=== PATIENT | female | born 1955 | race Caucasian/White ===

== ENCOUNTER 2018-01-25 11:21 | Emergency (ER) | payer BC, SELFPAY ==
[2018-01-25 11:22] VITALS: BP 147/83; PULSE 74; RESP 17; TEMP 36.3; O2SAT 95; BMI 40.6
--- NOTE | 2018-01-25 11:44 | RAD_ITS ---
STUDY: X-RAY - SOFT TISSUE NECK REASON FOR EXAM: Female, 62 years old. Sore throat. TECHNIQUE: 3 view(s) of the neck were obtained. COMPARISON: None. FINDINGS: Normal visualized nasopharynx, oropharynx, hypopharynx. Normal epiglottis. Normal visualized subglottic tracheal air column. Normal prevertebral soft tissue structures. There are degenerative changes of the cervical spine with cervical spondylosis. The soft tissue structures are unremarkable. 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 Electronically Signed: Gavin Avila MD at 12:48 EDT Tel [phone], Service support ,
--- NOTE | 2018-01-25 11:51 | ED.DCSUM_ITS ---
- ER Visit Summary Date of Service: 01/25/18 Chief Complaint: Sore throat History of Present Illness: The patient is a 62 F yesterday she started getting a sore throat with laryngitis. Denies any fever. Mild cough. No vomiting or diarrhea. Able to swallow but with some discomfort. Patient had a similar event this 1 other time states she had a significant strep infection at that time. She denies other symptoms. Physical Examination: Appearing female. Vital signs are stable. She is afebrile. She does not look septic or toxic. Pulse is 95% room air no hypoxia no distress. HEENT exam posterior pharynx is mildly erythematous tonsils are slightly enlarged. They are not touching the airways patent. There is no exudate. There is no stridor. She is able to swallow. There is no drooling. She was able to drink water in front of me with mild discomfort. Neck she is tender tonsillar beds but not tracheal tenderness no lymphadenopathy. No meningismus. Lungs clear to auscultation bilaterally. Heart regular rhythm no murmur. Abdomen soft nontender. She is moving all 4 extremities. They are neurovascularly intact. Neurologically she is awake and alert without focal motor deficits. Test Results: Soft tissue plain film of the neck shows no acute abnormality read both myself and the radiologist. There are degenerative changes at C5-C6. Rapid strep test negative. Emergency Department Course and Treatment: Clinically this appears to be a viral syndrome. Patient will undergo a rapid strep test and an x-ray. Treatment Plan: The patient is doing well at 1315. She will be treated symptomatically with warm salt water gargling. And follow-up as needed. Disposition: Discharge Impression: Acute viral pharyngitis This note was generated with [employer] dictation software. It may contain incorrect words, spelling, and punctuation that were not noted in review of the chart prior to signing ED Disposition - Plan for ED Patient: Chief Complaint: Sore Throat Referrals: Damon Jane [Primary Care Provider] -
--- NOTE | 2018-01-25 13:30 | ED.DEP ---
ED Disposition - Plan for ED Patient: Disposition: Home or Assisted Living Chief Complaint: Sore Throat Instructions: ED Pharyngitis Viral Referrals: Damon Jane [Primary Care Provider] - 1 Week if not improving Additional Instructions: Warm salt water gargling. Tea and honey. Rest your voice. This appears to be a viral syndrome and should progressively get better. No antibiotics are needed at this time.
[2018-01-25 13:49] VITALS: PULSE 54; RESP 17; O2SAT 98
== END 2018-01-25 13:50 | disposition home or self-care (01) ==
PROVIDERS: Emergency Provider Emergency Medicine; Family Provider Family Medicine; PCP Family Medicine
DX: J02.9 Acute pharyngitis, unspecified (principal); Z87.891 Personal history of nicotine dependence; D64.9 Anemia, unspecified; Z79.899 Other long term (current) drug therapy
CPT/HCPCS: 70360; 87880; 99282

== ENCOUNTER → 2018-09-06 16:48 | Outpatient (CLI) | payer OTHER, SELFPAY ==
[2018-09-06 16:24] VITALS: BMI 39.3
--- NOTE | 2018-09-06 16:55 | RAD_ITS ---
STUDY: X-RAY - RIGHT FOOT CLINICAL: Female, 63 years old. Trauma to great toe TECHNIQUE: 3 view(s) of the foot. COMPARISON: None. FINDINGS: Normal talus, and tarsal bones. Prominent plantar calcaneal spur Normal visualized subtalar, talonavicular, calcaneocuboid, tarsal and tarsometatarsal articulations. Normal metatarsi. Normal metatarsophalangeal joint of the great toe. Normal tibial and fibular sesamoid bones. Normal interphalangeal joint of the great toe. Acute comminuted nondisplaced fracture of the distal phalanx of the great toe. Normal second through fifth metatarsophalangeal joints. Normal interphalangeal joints and phalanges of the lesser toes. The soft tissue structures are unremarkable. RAD/Foot 2 Views IMPRESSION: Acute comminuted nondisplaced fracture of the distal phalanx of the great toe Electronically Signed: Arben Coulter MD at 17:43 EST , Service support ,
== END ==
PROVIDERS: Family Provider Family Medicine; PCP Family Medicine; Referring Provider Physician Assistant Medical; Visit Provider Physician Assistant Medical
DX: S92.424A Nondisplaced fracture of distal phalanx of right great toe, initial encounter for closed fracture (principal); S90.211A Contusion of right great toe with damage to nail, initial encounter; S90.31XA Contusion of right foot, initial encounter; S90.121A Contusion of right lesser toe(s) without damage to nail, initial encounter; W22.8XXA Striking against or struck by other objects, initial encounter
CPT/HCPCS: 73620

== ENCOUNTER → 2018-09-25 15:43 | Outpatient (CLI) | payer OTHER, BC, SELFPAY ==
[2018-09-25 15:31] VITALS: BMI 39.3
--- NOTE | 2018-09-25 15:47 | RAD_ITS ---
STUDY: X-RAY - RIGHT FOOT CLINICAL: Female, 63 years old. Pain and swelling TECHNIQUE: 4 view(s) of the foot. COMPARISON: 09/06/2018 FINDINGS: Normal talus, and tarsal bones. Calcaneal spurs Normal visualized subtalar, talonavicular, calcaneocuboid, tarsal and tarsometatarsal articulations. Normal metatarsi. Normal metatarsophalangeal joint of the great toe. Normal tibial and fibular sesamoid bones. Normal interphalangeal joint of the great toe. No interval change in appearance of a previously described comminuted fracture in the distal phalanx of the great toe. Normal second through fifth metatarsophalangeal joints. Normal interphalangeal joints and phalanges of the lesser toes. The soft tissue structures are unremarkable. RAD/Foot min 3 Views IMPRESSION: Degenerative arthrosis with calcaneal spurs No interval change in the appearance of a previously described comminuted fracture in the distal phalanx of the great toe Electronically Signed: Jacek Garza MD at 15:59 EST , Service support ,
--- OUTSIDE RECORDS SUMMARY | 2018-11-12 00:47 | XMS RPT_ITS ---
:1955 Author Organization OHIP Support Name Relationship Address Phone [employer] Unavailable [address] + [address] [place] [address] DANITA DOOLEYRICIA Unavailable [id number] + [place] [address] [employer] Unavailable [address] + [address] [place] [address] DANITA DOOLEYRICIA Unavailable [address] + [place] [address] [employer] Unavailable [address] + [address] [place] [address] DANITA DOOLEYRICIA Unavailable [address] + [place] [address] [employer] Unavailable [address] + [address] [place] [address] SOUMYA KELSEY Unavailable [address] + [place] [address] [employer] Unavailable [address] + [address] [place] [address] SOUMYA KELSEY Unavailable [address] + [place] [address] [employer] Unavailable [address] + [address] [place] [address] DANITA DOOLEYRICIA Unavailable [address] + [place] [address] [employer] Unavailable [address] + [address] [place] [address] DANITA DOOLEYRICIA Unavailable [address] + [place] [address] [employer] Unavailable [address] + [address] [address] NISHI DOOLEYIA Unavailable . + [place] [address] [employer] Unavailable [address] + [address] [address] DANITA DOOLEYRICIA Unavailable . + [place] [address] [employer] Unavailable [address] + [address] [address] NISHI DOOLEYIA Unavailable . + [place] [address] [employer] Unavailable [address] + [address] [address] NISHI DOOLEYIA Unavailable / + [place] [employer] Unavailable [address] + [address] [address] NISHI DOOLEYIA Unavailable / + [place] NOT GIVEN Unavailable Unavailable Unavailable DANITA DOOLEY Unavailable Unavailable + [employer] Unavailable [address] + [address] [address] NISHI DOOLEYIA Unavailable / + [place] [employer] Unavailable [address] + [address] [address] NISHI DOOLEYIA Unavailable / + [place] Care Team Providers Name Role Phone ETHAN ROBLES DPM Admitting Unavailable ETHAN ROBLES DPM Attending Unavailable ETHAN ROBLES DPVannessa Primary Care Unavailable PAIGE STONE Consulting Unavailable PROVIDER, UNKNOWN Consulting Unavailable Richar Kaminski Attending Unavailable Damon Jane Referring Unavailable Richar Kaminski Attending Unavailable Richar Kaminski Referring Unavailable Buck, Damon Primary Care Unavailable Richar Kaminski Attending Unavailable Damon Jane Referring Unavailable Richar Kaminski Attending Unavailable Richar Kaminski Referring Unavailable Buck, Damon Primary Care Unavailable Richar Kaminski Attending Unavailable Damon Jane Referring Unavailable Buck, Damon Primary Care Unavailable Buck, Damon Primary Care Unavailable Arben Lakhani Attending Unavailable Richar Kaminski Attending Unavailable Buck Damon Referring Unavailable Gordy, Richar Attending Unavailable Brown, Damon Referring Unavailable Daksha, Waleska Attending Unavailable Brown, Damon Referring Unavailable Daksha, Waleska Attending Unavailable Daksha, Waleska Referring Unavailable Buck, Damon Primary Care Unavailable Wayt, Brock Attending Unavailable Brown, Damon Referring Unavailable Wayt, Brock Attending Unavailable Wayt, Brock Referring Unavailable Brown, Damon Primary Care Unavailable Nurse, Standard Attending Unavailable Buck, Damon Referring Unavailable Gordy, Richar Attending Unavailable Brown, Damon Referring Unavailable PROBLEMS PROBLEMS DATE TYPE CONDITION / CODE ATTENDING STATUS SOURCE 11/01/2018 Unknown S92.401A - Brock Yeung Active [facility]placed [facility] unspecified Hospital fracture of right Repository great toe, initial encounter for closed fracture / S92.401A(ICD-10) 10/20/2018 Unknown S92.404A - Richar Kaminski Active [facility] Nondisplaced Community unspecified Hospital fracture of right Repository great toe, initial encounter for closed fracture / S92.404A(ICD-10) 10/20/2018 Unknown S90.111A - Richar Kaminski Active [facility] Contusion of right Community great toe without Hospital damage to nail, Repository initial encounter / S90.111A(ICD-10) 10/20/2018 Unknown S90.31XA - Richar Kaminski Active [facility] Contusion of right Community foot, initial Hospital encounter / Repository S90.31XA(ICD-10) 09/22/2018 Unknown S90.211A - Daksha, Active [facility] Contusion of right [facility] great toe with Hospital damage to nail, Repository initial encounter / S90.211A(ICD-10) 09/22/2018 Unknown S90.121A - Daksha, Active [facility] Contusion of right [facility] lesser toe(s) Hospital without damage to Repository nail, initial encounter / S90.121A(ICD-10) 09/22/2018 Unknown S91.101A - Daksha, Active [facility] Unspecified open [place] [facility] wound of right Hospital great toe without Repository damage to nail, initial encounter / S91.101A(ICD-10) 09/22/2018 Unknown S92.424A - Daksha, Active [facility] Nondisplaced [place] [facility] fracture of distal Hospital phalanx of right Repository great toe, initial encounter for closed fracture / S92.424A(ICD-10) 08/11/2018 Unknown Z23 - Encounter Richar Kaminski Active [facility] for immunization / Community Z23(ICD-10) Hospital Repository 08/11/2018 Unknown S61.214A - Richar Kaminski Active [facility] Laceration without Community foreign body of Hospital right ring finger Repository without damage to nail, initial encounter / S61.214A(ICD-10) 11/18/2017 Unknown J02.9 - Acute Richar Kaminski Active [facility] pharyngitis, Community unspecified / Hospital J02.9(ICD-10) Repository PROCEDURES PROCEDURES No Procedure Records FoundRESULTS RESULTS ORTHOPEDIC VISIT Observed: 11/03/2018 Status: F Source: [place] REPORT 8:25 AM [facility] REPOSITORY [facility] [address] [place] [address] OFFICE VISIT Date of Service: 11/01/18 MR#: [id number] Acct: [id number] Name: BETTE BRIGGS Rep #: [id number] : 1955 Provider: DAKOTA Yeung Age/Sex: 63/F [place] [facility] Status: Signed with Addenda ADDENDUM by DAKOTA Yeung on 11/03/18 at 0825 Addendum entered and electronically signed by DAKOTA Hodgson 11/03/18 08:25: Assessment AND Plan Problems 1. Nondisplaced fracture of distal phalanx of right great toe, initial encounter for closed fracture S92.424A Plan - DAKOTA Hodgson Obtained Xrays of patient's right great toe. Personally reviewed Xrays. There is evident fracture of the distal phalanx with continued lucency/nonhealing. There is minor displacement of fracture segments. There is no dislocation noted. See chart for further details. This time patient presents with a non-healing distal phalanx fracture of the right great toe. Patient states that she has seen improvement over the past 2 months as the swelling has decreased significantly and there are no open skin areas whereas before she did have some fracture blisters and a lot of bruising/ecchymosis. Her pains have also decreased significantly. She has been able to work without restrictions stating there is some pain but nothing she cant handle. She is wearing a postop boot but recently was able to find a shoe that is a few sizes too big and therefore able to fit her toe and and walk without too much of a limp. At this time patient states that she really does not think she wants to have anything done even if that would be an option. She states that it is not keeping her from doing what she wants to do and again there has been some steady/gradual improvement. At this time after discussion patient already is seeing a paper coating machine operator for some other issues that she has and therefore we are going to refer her back to her paper coating machine operator just for consultation to discuss this nonhealing fracture and so that can be followed in case something were to need to be done at a later date. Again patient is not looking to have any type of surgical procedure if not needed stating she does not have a much pain and is not limiting her daily activities of living. Again I am still recommending we just see the paper coating machine operator for consult for nonhealing fracture at this time. We will request at this time for consult for Dr. Ethan Robles in [place] [facility]. All the questions were answered at this time. This note was generated with [employer] dictation software. It may contain incorrect words, spelling, and punctuation that were not noted in checking the note before signing. Orders Orders: 11/03/18 0825 <Electronically signed by Brock DUNCAN> Date Brock Yeung cc: * Signed Intake Vital Signs11/01/18 Body Mass Index (BMI) 39.3 Intake Visit Reasons: right great toe Is patient in pain?: Yes Pain scale (1-10): 4 Allergies Sulfa (Sulfonamide Antibiotics) Allergy (Verified 09/08/18 10:07) Rash Medications Albuterol Inhaler [Ventolin Hfa] 2 puff INHALATION Q4H PRN PRN 03/12/14 [History Confirmed 07/24/18] Fluticasone 110 Mcg [Flovent 110 Mcg] 1 puff INHALATION BID PRN 03/12/14 [History Confirmed 07/24/18] Multivitamins,Therapeutic [Multivitamin] 1 tab PO DAILY 03/12/14 [History Confirmed 07/24/18] alprazolam 0.25 mg tablet 0.25 mg PO BID-TID PRN 09/25/17 [History Confirmed 07/24/18] cetirizine 10 mg tablet 10 mg PO QDAY 09/25/17 [History Confirmed 07/24/18] cholecalciferol (vitamin D3) 1,000 unit capsule 1,000 unit PO ONCE 09/25/17 [History Confirmed 07/24/18] hydrochlorothiazide 12.5 mg capsule 12.5 mg PO ONCE 09/25/17 [History Confirmed 07/24/18] naproxen sodium 220 mg tablet 220 mg PO Q12H 09/25/17 [History Confirmed 07/24/18] PFSH Medical History Hay fever (Acute) Surgical History History of knee replacement (Acute) Social History Smoking Status: Never smoker alcohol intake: never HPI right great toe: Details: BETTE BRIGGS is a 63 year old new patient F here today for f/u right great toe fracture from a 20lb part at work fell on her toe from 5ft above her. She [facility] today [facility] She has been fwb in the shoe since injury. She complains of sharp shooting pain that is not constant. Complaints of numbess around the top of her toe as well that is constant. She is using aleve prn which gives her some relief, she is not using ice. She is working with no restrictions in a larger than normal shoe. She was referred to us due to the fracture not healing well. She has bilateral lower leg swelling with pitting edema but she states that is what happens after working all day. She has redness in the great toe and short black toe nail that remains. ROS [facility] Reports joint pain, Reports as per HPI, Reports joint swelling Ortho Exam Right Ankle Exam: present TTP FX site (Right distal phalanx of the great toe); absent TTP Lateral Malleolus or TTP Medial Malleolus Dorsiflexion 0-20: 20 degrees Plantar Flexion 0-40: 40 degrees Motor: Ankle Dorsiflextion: 5, Ankle Plantar Flexion: 5 ANKLE: At this time patient has no evident abnormalities on inspection of the ankle. She has normal range of motion normal strength of the ankle. Patient does have some evident mild swelling still of the great toe. There does appear to be a very mild rubor color to the toe. This is not an acute erythema that would point to inflammation or infection. There is no evident open areas or open skin wounds and there is no bruising/ecchymosis other than just underneath the nail. There is only small portion of the nail still noted at the proximal nail bed. The nail is thickened again with some bruising within and under the nail. Patient does have some flexion of the IP joint with minimal tenderness. She does have some minor tenderness on palpation of the fracture site. Patient does have some decreased sensation from the IP joint distally. She has decreased sensation light palpation. Assessment AND Plan Problems 1. Closed nondisplaced fracture of phalanx of right great toe, unspecified phalanx, initial encounter S92.404A 2. Contusion of right great toe without damage to nail, initial encounter S90.111A Plan Obtained Xrays of patient's right great toe. Personally reviewed Xrays. There is evident fracture of the distal phalanx with continued lucency/nonhealing. There is minor displacement of fracture segments. There is no dislocation noted. See chart for further details. This time patient presents with a non-healing distal phalanx fracture of the right great toe. Patient states that she has seen improvement over the past 2 months as the swelling has decreased significantly and there are no open skin areas whereas before she did have some fracture blisters and a lot of bruising/ecchymosis. Her pains have also decreased significantly. She has been able to work without restrictions stating there is some pain but nothing she cant handle. She is wearing a postop boot but recently was able to find a shoe that is a few sizes too big and therefore able to fit her toe and and walk without too much of a limp. At this time patient states that she really does not think she wants to have anything done even if that would be an option. She states that it is not keeping her from doing what she wants to do and again there has been some steady/gradual improvement. At this time after discussion patient already is seeing a paper coating machine operator for some other issues that she has and therefore we are going to refer her back to her paper coating machine operator just for consultation to discuss this nonhealing fracture and so that can be followed in case something were to need to be done at a later date. Again patient is not looking to have any type of surgical procedure if not needed stating she does not have a much pain and is not limiting her daily activities of living. Again I am still recommending we just see the paper coating machine operator for consult for nonhealing fracture at this time. We will request at this time for consult for Dr. Ethan Robles in [place] [facility]. All the questions were answered at this time. This note was generated with [employer] software. It may contain incorrect words, spelling, and punctuation that were not noted in checking the note before signing. Orders Orders: Coding Level of Care Code Off vis,est,level 3 Diagnoses Closed nondisplaced fracture of phalanx of right great toe, unspecified phalanx, initial encounter S92.404A Encounter type: initial encounter Fracture type: closed Phalanx: unspecified phalanx Fracture alignment: nondisplaced Contusion of right great toe without damage to nail, initial encounter S90.111A Encounter type: initial encounter Toe: great toe Damage to nail status: without damage 11/02/18 1415 <Electronically signed by Brock DUNCAN> Date Brock DUNCAN Cosigner Signature: Date (if applicable) CC: TOE(S) MIN 2 VIEWS Observed: 11/01/2018 Status: F Source: [place] 2:44 PM [facility] REPOSITORY [facility] Imaging Services [address] [place] [address] Toe(s) Min 2 Views MR#: [id number] Acct: [id number] Name: BETTE BRIGGS Rep #: [id number] : 1955 F 63 From: Valeriy Diaz MD PCP: Damon Jane MD Status: REG CLI Study: Toe(s) Min 2 Views Date of Exam: 11/01/18 Exam# [id number] Ordering Dr: Brock Yeung STUDY: X-RAY RIGHT FOOT, TOE REASON FOR EXAM: Female, 63 years old. TECHNIQUE: 3 view(s) of the toe were obtained. COMPARISON: None. FINDINGS: There is a minimally distracted (2 mm) transversely oriented fracture of the proximal shaft of the distal phalanx of the right big toe with soft tissue swelling of the big toe. The proximal phalanx is normal RAD/Toe(s) Min 2 Views IMPRESSION: A distracted fracture involving the proximal margin of the distal phalanx of the right big toe Electronically Signed: Valeriy Diaz MD at 3:26 EST Tel , Service support , CC: DAKOTA Yeung; Damon Jane MD Service Employee: Signed URGENT CARE VISIT Observed: 10/09/2018 Status: F Source: [place] REPORT 12:48 PM [facility] REPOSITORY [facility] [address] [place] [address] OFFICE VISIT Date of Service: 10/09/18 MR#: [id number] Acct: [id number] Name: BETTE BRIGGS Rep #: [id number] : 1955 Provider: Richar DUNCAN Age/Sex: 63/F [place] [facility] Status: Signed Intake Vital Signs10/09/18 Body Mass Index (BMI) 39.3 10/09/18 Blood Pressure 122/82 H 10/09/18 Blood Pressure Location Lt brachial 10/09/18 Blood Pressure Position Sitting Intake Visit Reasons: RT BIG TOE/ [place] Chief Complaint: Follow up Allergies Sulfa (Sulfonamide Antibiotics) Allergy (Verified 09/08/18 10:07) Rash Medications Albuterol Inhaler [Ventolin Hfa] 2 puff INHALATION Q4H PRN PRN 03/12/14 [History Confirmed 07/24/18] Fluticasone 110 Mcg [Flovent 110 Mcg] 1 puff INHALATION BID PRN 03/12/14 [History Confirmed 07/24/18] Multivitamins,Therapeutic [Multivitamin] 1 tab PO DAILY 03/12/14 [History Confirmed 07/24/18] alprazolam 0.25 mg tablet 0.25 mg PO BID-TID PRN 09/25/17 [History Confirmed 07/24/18] cetirizine 10 mg tablet 10 mg PO QDAY 09/25/17 [History Confirmed 07/24/18] cholecalciferol (vitamin D3) 1,000 unit capsule 1,000 unit PO ONCE 09/25/17 [History Confirmed 07/24/18] hydrochlorothiazide 12.5 mg capsule 12.5 mg PO ONCE 09/25/17 [History Confirmed 07/24/18] naproxen sodium 220 mg tablet 220 mg PO Q12H 09/25/17 [History Confirmed 07/24/18] PFSH Medical History Hay fever (Acute) Surgical History History of knee replacement (Acute) Social History Smoking Status: Never smoker alcohol intake: never HPI HPI Chief Complaint: Follow up Details: BETTE BRIGGS, is a 63 F who presents to the office today for follow-up of a work-related injury which occurred on 09/05/2018. Patient states that her right great toe pain has improved although she continues to have some intermittent sharp pain particularly at the end of her workday. Patient does admit that she continues to wear tennis shoes to work rather than the postop shoe as given to her at her first appointment. She does state that she wears her postop shoe immediately after work when she gets home until work the next day. She also states that she has not yet made an orthopedic follow-up appointment despite being approved for and advised to follow-up with orthopedics due to a nonhealing great toe fracture. She denies any numbness or tingling or loss of range of motion to the toe. No other associated symptoms or alleviating/aggravating factors. ROS Const Constitutional: No chills, fever(s), fatigue or abnormal sleep pattern Musc Musculoskeletal: Positive for joint pain (Improved since last visit.); no tingling, stiffness, numbness, joint swelling, deformity, limited range of motion or abnormal walking Skin Skin: Positive for lesions and redness; no wounds Neuro Neurology: No tingling, numbness or abnormal walking Psych Psychiatric: No abnormal sleep pattern Endo Endocrine: No fatigue Exam Const General: cooperative, healthy appearing Resp Effort AND Inspection: normal respiratory effort Auscultation: Bilateral: Clear to Auscultation Cardio Palpation: normal PMI Rate: regular rate Rhythm: regular rhythm Musc Musculoskeletal: Yes joint tenderness; no decreased ROM Skin Other: See extremities. Neuro General: alert, CN's II-XI intact bilaterally Gait: normal gait Sensory Exam: no sensory deficits noted Extrem General: full ROM, normal capillary refill, no joint enlargement Other: Psych Appearance: grossly normal Mental Status: mental status grossly normal Assessment AND Plan Problems 1. Closed nondisplaced fracture of phalanx of right great toe, unspecified phalanx, initial encounter S92.404A 2. Contusion of right great toe without damage to nail, initial encounter S90.111A 3. Contusion of right foot, initial encounter S90.31XA Plan X-ray of the right great toe showing persistent now Displaced fracture of the midshaft distal phalanx of the first digit greater than prior study. Possible reinjury. Per radiologist impression. Patient strongly advised to follow-up with orthopedics for which she states she will likely after the new year because she is too busy . Patient advised of potential red flags and when appropriate to report to the ED. Patient verbalized understanding and agreement with all the above. [employer] [place] 14 filled out releasing patient back to work today with no restrictions other than to keep wearing the firm soled shoe as she refused to have any restrictions otherwise. Orders Orders: Coding Level of Care Code Off vis,est,level 3 Diagnoses Closed nondisplaced fracture of phalanx of right great toe, unspecified phalanx, initial encounter S92.404A Encounter type: initial encounter Fracture type: closed Phalanx: unspecified phalanx Fracture alignment: nondisplaced Contusion of right great toe without damage to nail, initial encounter S90.111A Encounter type: initial encounter Toe: great toe Damage to nail status: without damage Contusion of right foot, initial encounter S90.31XA 10/09/18 1248 <Electronically signed by Richar DUNCAN> Date Richar DUNCAN [facility] Signature: Date (if applicable) CC: FOOT MIN 3 VIEWS Observed: 10/09/2018 Status: F Source: [place] 10:18 AM [facility] REPOSITORY [facility] Imaging Services [address] [place] [address] Foot min 3 Views MR#: [id number] Acct: [id number] Name: BETTE BRIGGS Rep #: [id number] : 1955 F 63 From: Yeimi Collins MD PCP: Damon Jane MD Status: REG CLI Study: Foot min 3 Views Date of Exam: 10/09/18 Exam# [id number] Ordering Dr: iRchar Kaminski STUDY: X-RAY - RIGHT FOOT CLINICAL: Female, 63 years old. History of fracture follow-up TECHNIQUE: 3 view(s) of the foot. COMPARISON: None. FINDINGS: Normal talus, calcaneus, and tarsal bones. Normal visualized subtalar, talonavicular, calcaneocuboid, tarsal and tarsometatarsal articulations. Normal metatarsi. Normal metatarsophalangeal joint of the great toe. Normal tibial and fibular sesamoid bones. Normal interphalangeal joint of the great toe. There is a subacute fracture of the distal phalanx of the first digit with a fracture line across the midline and at the lateral corner of the interphalangeal joint. Since prior study September 25, 2018 there is greater displacement. Breast seen on oblique view.. Normal second through fifth metatarsophalangeal joints. There is mild degenerative change in the interphalangeal joints of the foot. The bones overall are osteopenic. There is calcification of the plantar fascia which can be associated plantar fasciitis. This visualized mild soft tissue swelling overlying the dorsal aspect of the foot. RAD/Foot min 3 Views IMPRESSION: Persistent now Displaced fracture of the midshaft distal phalanx of the first digit greater than prior study. Possible reinjury. Calcification of plantar fascia can be associated plantar fasciitis. Degenerative change of the distal interphalangeal joints. Osteopenia. Electronically Signed: Yeimi Collins MD at 12:16 EST Tel , Service support , CC: Richar DUNCAN; Damon Jane MD Service Employee: Signed URGENT CARE VISIT Observed: 09/25/2018 Status: F Source: [place] REPORT 5:16 PM [facility] REPOSITORY [facility] [address] [place] [address] [address] [place] [address] OFFICE VISIT Date of Service: 09/25/18 MR#: [id number] Acct: [id number] Name: BETTE BRIGGS Rep #: [id number] : 1955 Provider: Richar DUNCAN Age/Sex: 63/F [place] [facility] Status: Signed Intake Vital Signs09/25/18 Body Mass Index (BMI) 39.3 09/25/18 Blood Pressure 120/80 09/25/18 Blood Pressure Location Lt brachial Intake Visit Reasons: [place] TOE F/U Chief Complaint: Follow up Freedom Of Information Officer Required: No Allergies Sulfa (Sulfonamide Antibiotics) Allergy (Verified 09/08/18 10:07) Rash Medications Albuterol Inhaler [Ventolin Hfa] 2 puff INHALATION Q4H PRN PRN 03/12/14 [History Confirmed 07/24/18] Fluticasone 110 Mcg [Flovent 110 Mcg] 1 puff INHALATION BID PRN 03/12/14 [History Confirmed 07/24/18] Multivitamins,Therapeutic [Multivitamin] 1 tab PO DAILY 03/12/14 [History Confirmed 07/24/18] alprazolam 0.25 mg tablet 0.25 mg PO BID-TID PRN 09/25/17 [History Confirmed 07/24/18] cetirizine 10 mg tablet 10 mg PO QDAY 09/25/17 [History Confirmed 07/24/18] cholecalciferol (vitamin D3) 1,000 unit capsule 1,000 unit PO ONCE 09/25/17 [History Confirmed 07/24/18] hydrochlorothiazide 12.5 mg capsule 12.5 mg PO ONCE 09/25/17 [History Confirmed 07/24/18] naproxen sodium 220 mg tablet 220 mg PO Q12H 09/25/17 [History Confirmed 07/24/18] PFSH Medical History Hay fever (Acute) Surgical History History of knee replacement (Acute) Social History Smoking Status: Never smoker alcohol intake: never HPI HPI Chief Complaint: Follow up Details: BETTE BRIGGS, is a 63 F who presents to the office today for follow-up of a work-related injury which occurred on 09/05/2018. Patient states that her right great toe pain has nearly completely resolved besides some small aching at the end of the day. She does also report not wearing her postop shoe as directed instead wears a stiff soled tennis shoe for work and then places her postop shoe on directly after work. She denies any numbness or tingling or loss of range of motion to the toe. She states that her foot otherwise is without pain or restrictions. She is also requesting a return to work without restrictions at this time as she has previously. No other associated symptoms or alleviating/aggravating factors. ROS Const Constitutional: No chills, fever(s), fatigue or abnormal sleep pattern Musc Musculoskeletal: Positive for joint pain (Improved since last visit.); no tingling, stiffness, numbness, joint swelling, deformity, limited range of motion or abnormal walking Skin Skin: Positive for lesions and redness; no wounds Neuro Neurology: No tingling, numbness, unsteady gait/balance or abnormal walking Psych Psychiatric: No abnormal sleep pattern Endo Endocrine: No fatigue Exam Const General: cooperative, healthy appearing Resp Effort AND Inspection: normal respiratory effort Auscultation: Bilateral: Clear to Auscultation Cardio Palpation: normal PMI Rate: regular rate Rhythm: regular rhythm Musc Musculoskeletal: Yes joint tenderness; no decreased ROM Skin Other: See extremities. Neuro General: alert, CN's II-XI intact bilaterally Gait: normal gait Sensory Exam: no sensory deficits noted Extrem General: full ROM, normal capillary refill, no joint enlargement Other: Right great toe with very minimal erythema, no blistering and near resolution of wound as compared to last visit. Full range of motion and sensation to the toe. Otherwise normal. Psych Appearance: grossly normal Mental Status: mental status grossly normal Assessment AND Plan Problems 1. Closed nondisplaced fracture of phalanx of right great toe, unspecified phalanx, initial encounter S92.404A 2. Contusion of right great toe without damage to nail, initial encounter S90.111A 3. Contusion of right foot, initial encounter S90.31XA Plan [employer] 14 filled out releasing patient back to work without restrictions per patient request. Form C9 filled out referring patient to orthopedics due to no interval improvement of the right great toe fracture as read by the radiologist. Patient has been made aware of these findings and verbalizes understanding of all the above. Patient advised she no longer needs to follow-up in this office unless she should have exacerbation of her symptoms or new concerns. Advised of potential red flags and when appropriate to report to the ED. Patient verbalized understanding and agreement with all of the above. Coding Level of Care Code Off vis,est,level 4 Diagnoses Closed nondisplaced fracture of phalanx of right great toe, unspecified phalanx, initial encounter S92.404A Encounter type: initial encounter Fracture type: closed Phalanx: unspecified phalanx Fracture alignment: nondisplaced Contusion of right great toe without damage to nail, initial encounter S90.111A Encounter type: initial encounter Toe: great toe Damage to nail status: without damage Contusion of right foot, initial encounter S90.31XA 09/25/18 1716 <Electronically signed by Richar DUNCAN> Date Richar DUNCAN Cosigner Signature: Date (if applicable) CC: FOOT MIN 3 VIEWS Observed: 09/25/2018 Status: F Source: [place] 3:47 PM [facility] REPOSITORY [facility] Imaging Services [address] [place] [address] Foot min 3 Views MR#: [id number] Acct: [id number] Name: BETTE BRIGGS Rep #: [id number] : 1955 F 63 From: Koffi Garza MD PCP: Damon Jane MD Status: REG CLI Study: Foot min 3 Views Date of Exam: 09/25/18 Exam# [id number] Ordering Dr: Richar Kaminski STUDY: X-RAY - RIGHT FOOT CLINICAL: Female, 63 years old. Pain and swelling TECHNIQUE: 4 view(s) of the foot. COMPARISON: 09/06/2018 FINDINGS: Normal talus, and tarsal bones. Calcaneal spurs Normal visualized subtalar, talonavicular, calcaneocuboid, tarsal and tarsometatarsal articulations. Normal metatarsi. Normal metatarsophalangeal joint of the great toe. Normal tibial and fibular sesamoid bones. Normal interphalangeal joint of the great toe. No interval change in appearance of a previously described comminuted fracture in the distal phalanx of the great toe. Normal second through fifth metatarsophalangeal joints. Normal interphalangeal joints and phalanges of the lesser toes. The soft tissue structures are unremarkable. RAD/Foot min 3 Views IMPRESSION: Degenerative arthrosis with calcaneal spurs No interval change in the appearance of a previously described comminuted fracture in the distal phalanx of the great toe Electronically Signed: Jacek Garza MD at 15:59 EST , Service support , CC: Richar DUNCAN; Damon Jane MD Service Employee: Signed URGENT CARE VISIT Observed: 09/08/2018 Status: F Source: [place] REPORT 1:10 PM [facility] REPOSITORY [facility] [place] [address] OFFICE VISIT Date of Service: 09/08/18 MR#: [id number] Acct: [id number] Name: BETTE BRIGGS Rep #: [id number] : 1955 Provider: Richar DUNCAN Age/Sex: 63/F Location: [facility] Status: Signed Intake Vital Signs09/08/18 Body Mass Index (BMI) 39.3 09/08/18 Blood Pressure 126/84 H 09/08/18 Blood Pressure Location Lt brachial 09/08/18 Blood Pressure Position Sitting 09/08/18 Respiratory Rate 16 Intake Visit Reasons: [place] BRASS-TOE F/U Chief Complaint: pain right foot injury Freedom Of Information Officer Required: No Accompanied by: self Is patient in pain?: No Allergies Sulfa (Sulfonamide Antibiotics) Allergy (Verified 09/08/18 10:07) Rash Medications Albuterol Inhaler [Ventolin Hfa] 2 puff INHALATION Q4H PRN PRN 03/12/14 [History Confirmed 07/24/18] Fluticasone 110 Mcg [Flovent 110 Mcg] 1 puff INHALATION BID PRN 03/12/14 [History Confirmed 07/24/18] Multivitamins,Therapeutic [Multivitamin] 1 tab PO DAILY 03/12/14 [History Confirmed 07/24/18] alprazolam 0.25 mg tablet 0.25 mg PO BID-TID PRN 09/25/17 [History Confirmed 07/24/18] cetirizine 10 mg tablet 10 mg PO QDAY 09/25/17 [History Confirmed 07/24/18] cholecalciferol (vitamin D3) 1,000 unit capsule 1,000 unit PO ONCE 09/25/17 [History Confirmed 07/24/18] hydrochlorothiazide 12.5 mg capsule 12.5 mg PO ONCE 09/25/17 [History Confirmed 07/24/18] naproxen sodium 220 mg tablet 220 mg PO Q12H 09/25/17 [History Confirmed 07/24/18] PFSH Medical History Hay fever (Acute) Surgical History History of knee replacement (Acute) Social History Smoking Status: Never smoker alcohol intake: never HPI HPI Chief Complaint: pain right foot injury Details: BETTE BRIGGS, is a 63 F who presents to the office today for follow-up of a work-related injury which occurred on 09/05/2018. Patient was initially evaluated here on 09/06/2018 and found to have a comminuted fracture of the right great toe as well as contusions of the right great toe and foot. Additionally patient had a open wound to the right great toe. Patient states that the pain to the foot and toe have greatly improved with minimal pain today. She states that she has been able to discontinue the ibuprofen and Tylenol for the pain. She also reports being able to move the toe which she was not previously able to do due to swelling and pain. She did finish her round of antibiotics which she was previously on for a sinus infection and states that the wound has greatly improved with much less swelling and redness compared to right after the accident. She denies any radiation of pain or streaking. No fever, chills, sweats. No other associated symptoms or alleviating/aggravating factors. ROS Const Constitutional: No chills, fever(s), fatigue or abnormal sleep pattern Resp Respiratory: No shortness of breath or chest congestion Cardio Cardiology: No chest pain at rest, chest pain with exertion or shortness of breath Musc Musculoskeletal: Positive for joint pain; no tingling, stiffness, numbness, joint swelling, deformity or limited range of motion Skin Skin: Positive for lesions and redness; no wounds Neuro Neurology: No behavioral changes, confusion, tingling or numbness Psych Psychiatric: No behavioral changes, No confusion, No abnormal sleep pattern Endo Endocrine: No fatigue Exam Const General: cooperative, healthy appearing Resp Effort AND Inspection: normal respiratory effort Auscultation: Bilateral: Clear to Auscultation Cardio Palpation: normal PMI Rate: regular rate Rhythm: regular rhythm Musc Musculoskeletal: Yes joint tenderness; no decreased ROM Skin Other: See extremities. Neuro General: alert, CN's II-XI intact bilaterally Gait: normal gait Sensory Exam: no sensory deficits noted Extrem General: full ROM, normal capillary refill, no joint enlargement Other: Right great toe with mild erythema and several small fluid-filled blisters. There is no streaking, warmth or surrounding erythema. Full range of motion and sensation to the toe. Otherwise normal. Psych Appearance: grossly normal Mental Status: mental status grossly normal Assessment AND Plan Problems 1. Closed nondisplaced fracture of phalanx of right great toe, unspecified phalanx, initial encounter S92.404A Status Acute 2. Contusion of right great toe without damage to nail, initial encounter S90.111A Status Acute 3. Contusion of right foot, initial encounter S90.31XA Status Acute Plan [employer] 14 filled out releasing patient back to work today without restrictions per patient request. Advised the patient continue to wear a stiff soled shoe and preferably the postop shoe given to her. She is to follow back up in this office in 2 weeks for a recheck of her right great toe at which time she will get an x-ray. Coding Level of Care Code Off vis,est,level 4 Diagnoses Closed nondisplaced fracture of phalanx of right great toe, unspecified phalanx, initial encounter S92.404A Encounter type: initial encounter Fracture type: closed Phalanx: unspecified phalanx Fracture alignment: nondisplaced Contusion of right great toe without damage to nail, initial encounter S90.111A Encounter type: initial encounter Toe: great toe Damage to nail status: without damage Contusion of right foot, initial encounter S90.31XA 09/08/18 1310 <Electronically signed by Richar DUNCAN> Date Richar DUNCAN Cosigner Signature: Date (if applicable) CC: URGENT CARE VISIT Observed: 09/06/2018 Status: F Source: [place] REPORT 6:[address] [address] OFFICE VISIT Date of Service: 09/06/18 MR#: [id number] Acct: [id number] Name: BETTE BRIGGS Rep #: [id number] : 1955 Provider: DAKOTA Crooks Age/Sex: 63/F Location: [facility] Status: Signed Intake Vital Signs09/06/18 Body Mass Index (BMI) 39.3 Intake Visit Reasons: RIGHT FOOT Chief Complaint: pain right foot injury Freedom Of Information Officer Required: No Accompanied by: None Allergies Sulfa (Sulfonamide Antibiotics) Allergy (Verified 07/24/18 15:26) Rash Medications Albuterol Inhaler [Ventolin Hfa] 2 puff INHALATION Q4H PRN PRN 03/12/14 [History Confirmed 07/24/18] Fluticasone 110 Mcg [Flovent 110 Mcg] 1 puff INHALATION BID PRN 03/12/14 [History Confirmed 07/24/18] Multivitamins,Therapeutic [Multivitamin] 1 tab PO DAILY 03/12/14 [History Confirmed 07/24/18] alprazolam 0.25 mg tablet 0.25 mg PO BID-TID PRN 09/25/17 [History Confirmed 07/24/18] cetirizine 10 mg tablet 10 mg PO QDAY 09/25/17 [History Confirmed 07/24/18] cholecalciferol (vitamin D3) 1,000 unit capsule 1,000 unit PO ONCE 09/25/17 [History Confirmed 07/24/18] hydrochlorothiazide 12.5 mg capsule 12.5 mg PO ONCE 09/25/17 [History Confirmed 07/24/18] naproxen sodium 220 mg tablet 220 mg PO Q12H 09/25/17 [History Confirmed 07/24/18] PFSH Medical History Hay fever (Acute) Surgical History History of knee replacement (Acute) Social History Smoking Status: Never smoker alcohol intake: never HPI HPI Chief Complaint: pain right foot injury Details: BETTE BRIGGS, is a 63 F who presents to the office today for severe pain right foot since a heavy item fell on to it at work yesterday. 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 he tip heavy item fell on her foot from several feet. She said the pain made her almost pass out. Her great toe swelled up. There was no open wound at the time off injury, just a dent'and the corporate safety director wasn't there. Today she worked on it all day and noted increased pain with blood on her stocking. When she saw all the blisters and how black and blue it was, and some blood, she emailed her corporate safety director, and told her boss who sent her here. She states she cannot afford to be offf work. She does not have diabetes. She is already on Augmentin 875 bid x 7 days of a 10 day supply for sinus infection. ROS Const Constitutional: No body ache, chills, fatigue, fever(s), night sweats, change in appetite, weakness, frequent falls, headache(s) or excessive sweating Eyes Eyes: No visual disturbances, light sensitivity, eye pain or change in vision ENT ENT: No ear pain, ear discharge, hearing loss, dizziness/vertigo, nasal discharge, difficulty swallowing, sore throat, neck pain or headache(s) Resp Respiratory: Positive for shortness of breath (occasional inhaler use); no cough, chest congestion, hemoptysis or wheezing Cardio Cardiology: Positive for other (hyprtension); no shortness of breath, irregular heart rhythm, lightheadedness, chest pain at rest, chest pain with exertion, generalized swelling, orthopnea, palpitations or excessive sweating Gastro GI: Positive for other; no difficulty swallowing, abdominal pain, bloating, change in bowel habits, diarrhea, blood in stool, Black,tarry stools, nausea/dyspepsia or vomiting Genitourinary-Female: No burning urination, urinary frequency, urinary urgency, blood in urine or Vaginal Itching Musc Musculoskeletal: Positive for joint pain (right great toe and foot) and limited range of motion; no back pain, numbness, tingling or neck pain Skin Skin: Positive for sores and wounds (opn blisers right great toe ); no lesions, itching or rash Neuro Neurology: No visual disturbances, numbness, tingling, abnormal speech, confusion, unsteady gait/balance, dizziness, weakness, frequent falls, loss of vision, headache(s) or memory loss Psych Psychiatric: No change in appetite, No confusion, No memory loss, No anxiety, No depression, No panic attacks, No hallucinations, No Thoughts of harming yourself/Others Endo Endocrine: No fatigue, cold intolerance, excessive sweating, flushing, heat intolerance or increased thirst/drinking Aller/Imm Allergy/Immunologic: No wheezing, itchy eyes, food intolerance, seasonal allergy symptoms or hives Mega/Lymp Hematologic/Lymphatic: No easy bruising Exam Const General: cooperative, no acute distress (while sitting, antalgic gait noted protecting right foot.) Nutritional Appearance: overweight Orientation: alert, oriented x3 [facility] Head: normal to inspection, normocephalic Ears: hearing grossly normal bilaterally Eyes General: appearance normal, both eyes and all related structures Eyelids: eyelids normal Conjunctivae: conjunctivae normal Sclera: sclerae normal Neck Neck: normal visual inspection, full ROM, supple Lymphatic: no lymphadenopathy noted Chest Chest palpation AND inspection: normal inspection of the chest Resp Effort AND Inspection: normal respiratory effort, able to speak in complete sentences, symmetric chest movement, no audible wheezes, no cough, not labored, no respiratory distress Auscultation: Bilateral: Clear to Auscultation Cardio Rate: regular rate Rhythm: regular rhythm Heart Sounds: S1 normal, S2 normal Musc Musculoskeletal: Yes joint tenderness (right great toe) and joint redness (and echymosis right great toe.) Skin Other: Open Blisters, swelling, ecchymosis, and erythema right great toe. +tender to palpate . 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 Neuro General: alert, oriented x3, moves all extremities (except cannot move right great toe. ) Cranial Nerves: CN's II-XI intact bilaterally Cognition: normal cognition Speech: speech normal Gait: antalgic (protecting right foot) Sensory Exam: no sensory deficits noted (Other than decreased sensation right great toe.) Extrem General: normal exam except as noted (Right great toe swelling, open blisters, and ecchymosis with decreased ROM) Other: Right forefoot pain and tenderness Psych Appearance: grossly normal, well kempt Mental Status: mental status grossly normal Affect: normal affect Speech and Movement: speech and movement normal Attitude: cooperative Thought Process: normal Thought Content: normal Judgment: judgment good Assessment AND Plan Problems 1. Contusion of right great toe without damage to nail, initial encounter S90.111A 2. Open wound of right great toe, initial encounter S91.101A 3. Nondisplaced fracture of distal phalanx of right great toe S92.424A Plan Patient sent for stat xray right foot, Final report: Acute comminuted nondisplaced fracture of the distal phalanx of right great toe. She is already on Augmentin 875mg bid, with 3 more days to take for sinus infection. Ibuprofen 800 mg q 6 h called to [facility] #20 Follow up Tuesday09/08/2018 to recheck great toe status. May need more antibiotics. Patient worked an entire day on it yesterday- would like to see if elevation improves her swelling and blistering. May need another rround of antibiotics. Orders Orders: Coding Level of Care Code Off vis,new,level 3 Diagnoses Contusion of right great toe without damage to nail, initial encounter S90.111A Open wound of right great toe, initial encounter S91.101A Encounter type: initial encounter Nondisplaced fracture of distal phalanx of right great toe S92.424A Encounter type: initial encounter 09/06/181819 <Electronically signed by Waleska DUNCAN> Date Waleska DUNCAN Cosigner Signature: Date (if applicable) CC: FOOT 2 VIEWS Observed: 09/06/2018 Status: F Source: [place] 4:56 PM [facility] REPOSITORY [facility] Imaging Services [address] [place] [address] Foot 2 Views MR#: [id number] Acct: [id number] Name: BETTE BIRGGS Rep #: [id number] : 1955 F 63 From: Arben Coulter MD PCP: Damon Jane md Status: REG CLI Study: Foot 2 Views Date of Exam: 09/06/18 Exam# [id number] Ordering Dr: Waleska Crooks STUDY: X-RAY - RIGHT FOOT CLINICAL: Female, 63 years old. Trauma to great toe TECHNIQUE: 3 view(s) of the foot. COMPARISON: None. FINDINGS: Normal talus, and tarsal bones. Prominent plantar calcaneal spur Normal visualized subtalar, talonavicular, calcaneocuboid, tarsal and tarsometatarsal articulations. Normal metatarsi. Normal metatarsophalangeal joint of the great toe. Normal tibial and fibular sesamoid bones. Normal interphalangeal joint of the great toe. Acute comminuted nondisplaced fracture of the distal phalanx of the great toe. Normal second through fifth metatarsophalangeal joints. Normal interphalangeal joints and phalanges of the lesser toes. The soft tissue structures are unremarkable. RAD/Foot 2 Views IMPRESSION: Acute comminuted nondisplaced fracture of the distal phalanx of the great toe Electronically Signed: Arben Coulter MD at 17:43 EST , Service support , CC: DAKOTA Crooks; md Damon Jane Service Employee: Signed URGENT CARE VISIT Observed: 07/25/2018 Status: F Source: [place] REPORT 9:01 AM [facility] REPOSITORY [facility] [address] [place] [address] OFFICE VISIT Date of Service: 07/24/18 MR#: [id number] Acct: [id number] Name: BETTE BRIGGS Rep #: [id number] : 1955 Provider: Richar DUNCAN Age/Sex: 63/F Location: [facility] Status: Signed Intake Vital Signs07/24/18 Height 6 ft 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 Allergies Sulfa (Sulfonamide Antibiotics) Allergy (Verified 07/24/18 15:26) Rash Medications Albuterol Inhaler [Ventolin Hfa] 2 puff INHALATION Q4H PRN PRN 03/12/14 [History Confirmed 07/24/18] Fluticasone 110 Mcg [Flovent 110 Mcg] 1 puff INHALATION BID PRN 03/12/14 [History Confirmed 07/24/18] Multivitamins,Therapeutic [Multivitamin] 1 tab PO DAILY 03/12/14 [History Confirmed 07/24/18] alprazolam 0.25 mg tablet 0.25 mg PO BID-TID PRN 09/25/17 [History Confirmed 07/24/18] cetirizine 10 mg tablet 10 mg PO QDAY 09/25/17 [History Confirmed 07/24/18] cholecalciferol (vitamin D3) 1,000 unit capsule 1,000 unit PO ONCE 09/25/17 [History Confirmed 07/24/18] hydrochlorothiazide 12.5 mg capsule 12.5 mg PO ONCE 09/25/17 [History Confirmed 07/24/18] naproxen sodium 220 mg tablet 220 mg PO Q12H 09/25/17 [History Confirmed 07/24/18] PFSH Medical History Hay fever (Acute) Surgical History History of knee replacement (Acute) Social History Smoking Status: Never smoker alcohol intake: never HPI HPI Details: BETTE BRIGGS, is a 63 F who presents to the office today for laceration to the right fourth digit that occurred at work just prior to the patient coming in today. Patient states she could on a piece of metal and cleaned it at work however would not stop bleeding and therefore came in to have it evaluated. She denies any numbness, tingling or loss of range of motion to the finger. She is unaware of her last Tdap immunization. No other associated symptoms or alleviating/aggravating factors. ROS Const Constitutional: No chills, fever(s), fatigue or abnormal sleep pattern Resp Respiratory: No shortness of breath or chest congestion Cardio Cardiology: No chest pain at rest, chest pain with exertion or shortness of breath Skin Skin: Positive for wounds (Right fourth finger laceration); no lesions Neuro Neurology: No behavioral changes or confusion Psych Psychiatric: No behavioral changes, No confusion, No abnormal sleep pattern Endo Endocrine: No fatigue Exam Const General: cooperative, healthy appearing Resp Effort AND Inspection: normal respiratory effort Auscultation: Bilateral: Clear to Auscultation Cardio Palpation: normal PMI Rate: regular rate Rhythm: regular rhythm Skin Other: Service laceration to the pad of the right fourth finger measuring approximately 0.5 cm in length. Laceration does not go through the dermal layer. Wound cleansed with Hibiclens and explored with no bleeding or foreign bodies visualized. Bacitracin applied along with a bandage. Neuro General: alert, CN's II-XI intact bilaterally Motor: muscle tone normal throughout, strength 5/5 throughout Sensory Exam: no sensory deficits noted Extrem General: normal capillary refill, normal exam except as noted, full ROM Psych Appearance: grossly normal Mental Status: mental status grossly normal Immunizations Adacel (Tdap Adolesn/Adult)(PF)2Lf-(2.5-5-3-5mcg)-5 Lf/0.5 mL IM susp Performing Provider: DAKOTA He Administered by: Rosi Veloz on 07/24/18 15:40 Dose Route Admin Location Lot Number Expiration Date NDC F[employer]lift [employer] 0.5 mL IM Right Deltoid [id number] 06/28/19 [id number] [employer] VIS Given Date VIS Publication Date 07/24/18 07/24/18 Eligibility Eligibility Date Assessment AND Plan Problems 1. Laceration of right ring finger without foreign body without damage to nail, initial encounter S61.214A Status Acute Plan See skin examination for wound care. First report of injury and [employer] 14 filled out releasing patient back to work today with restrictions other than to keep the area clean and covered. Patient advised she does not need to follow-up in this office unless she should have an exacerbation of symptoms or new concerns. Advised patient of appropriate wound care as well as potential red flags and when appropriate report to the ED. Patient verbalized understanding and agreement with all the above. Orders Orders: Medications Discontinued: Adacel (Tdap Adolesn/Adult)(PF)2Lf-(2.5-5-3-5mcg)-5 Lf/0.0.5 mL IM ONCE 0.5 mL 0RF NS Z23 5 mL IM susp (diph,pertuss(acel),tet vac(PF)) Disconti nued Reason: Office Medication has been Documented as gi leandro Coding Level of Care Code Off vis,est,level 4 Diagnoses Laceration of right ring finger without foreign body without damage to nail, initial encounter S61.214A Encounter type: initial encounter 07/25/18 0901 <Electronically signed by Richar DUNCAN> Date Richar DUNCAN Cosigner Signature: Date (if applicable) CC: TOES RT Observed: 04/06/2018 Status: F [facility] [place] [id number] Patient: BETTE BRIGGS Phone#: : 1955 Age: 62 Gender: F Pt. Type: Out Account: [id number] Location: Ordering: ETHAN ROBLES Exam Date: 04/06/2018/16:22 Family Phys: PAIGE STONE Charge Code: 860219 Physician: [place] Order #: [id number] DLP Dose#: PROCEDURE: X-RAY TOES RT MIN 2 VIEWS COMPARISON: None. INDICATIONS: Injury FINDINGS: BONES: No acute fracture. There is osseous spurring at the second, third and fourth PIP. There is joint space loss at the second 2/5 DIPs and PIP articulations. Small erosion at the third DIP. SOFT TISSUES: Negative. No visible soft tissue swelling. EFFUSION: None visible. OTHER: Negative. CONCLUSION: 1. 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 2. Small erosion at the third PIP articulation. Dictated by: Alem Nunez MD on 04/06/2018 at 17:43 Approved by: Alem Nunez MD on 04/06/2018 at 17:43 EMERGENCY DEPARTMENT Observed: 01/25/2018 Status: F Source: [place] SUMMARY 5:09 PM [facility] Medical Records Department [address] [place] [address] Emergency Department Summary 01/25/18 1149 MR#: [id number] Acct: [id number] Name: BETTE BRIGGS Rep #: [id number] : 1955 62 From: Arben Lakhani MD PCP: Damon Jane Status: DEP ER - ER Visit Summary Date of Service: 01/25/18 Chief Complaint: Sore throat History of Present Illness: The patient is a 62 F yesterday she started getting a sore throat with laryngitis. Denies any fever. Mild cough. No vomiting or diarrhea. Able to swallow but with some discomfort. Patient had a similar event this 1 other time states she had a significant strep infection at that time. She denies other symptoms. Physical Examination: Appearing female. Vital signs are stable. She is afebrile. She does not look septic or toxic. Pulse is 95% room air no hypoxia no distress. HEENT exam posterior pharynx is mildly erythematous tonsils are slightly enlarged. They are not touching the airways patent. There is no exudate. There is no stridor. She is able to swallow. There is no drooling. She was able to drink water in front of me with mild discomfort. Neck she is tender tonsillar beds but not tracheal tenderness no lymphadenopathy. No meningismus. Lungs clear to auscultation bilaterally. Heart regular rhythm no murmur. Abdomen soft nontender. She is moving all 4 extremities. They are neurovascularly intact. Neurologically she is awake and alert without focal motor deficits. Test Results: Soft tissue plain film of the neck shows no acute abnormality read both myself and the radiologist. There are degenerative changes at C5- C6. Rapid strep test negative. Emergency Department Course and Treatment: Clinically this appears to be a viral syndrome. Patient will undergo a rapid strep test and an x-ray. Treatment Plan: The patient is doing well at 1315. She will be treated symptomatically with warm salt water gargling. And follow-up as needed. Disposition: Discharge Impression: Acute viral pharyngitis This note was generated with [employer] dictation software. It may contain incorrect words, spelling, and punctuation that were not noted in review of the chart prior to signing ED Disposition - Plan for ED Patient: Chief Complaint: Sore Throat Referrals: Damon Jane [Primary Care Provider] - What to do if you have Problems For any increased pain, shortness of breath, bleeding, nausea or vomiting, chest pain, or any unexpected problems, contact your Primary Care Provider. Call [facility] ([phone]) or report to the closest Emergency Room. Call 911 if necessary. 01/25/181708 <Electronically signed by Arben Lakhani MD> Date Arben Lakhani MD Cosigner Signature (If Indicated): Date CC: Damon Jane DISCHARGE INSTRUCTION Observed: 01/25/2018 Status: F Source: [place] 5:09 PM [facility] REPOSITORY [facility] Medical Records Department [address] [place] [address] Discharge Instruction 01/25/18 1330 MR#: [id number] Acct: [id number] Name: BETTE BRIGGS Rep #: [id number] : 1955 62 From: Arben Lakhani MD PCP: Damon Jane Status: DEP ER ED Disposition - Plan for ED Patient: Disposition: Home or Assisted Living Chief Complaint: Sore Throat Instructions: ED Pharyngitis Viral Referrals: Damon Jane [Primary Care Provider] - 1 Week if not improving Additional Instructions: Warm salt water gargling. Tea and honey. Rest your voice. This appears to be a viral syndrome and should progressively get better. No antibiotics are needed at this time. What to do if you have Problems For any increased pain, shortness of breath, bleeding, nausea or vomiting, chest pain, or any unexpected problems, contact your Primary Care Provider. Call [facility] ([phone]) or report to the closest Emergency Room. Call 911 if necessary. 01/25/181708 <Electronically signed by Arben Lakhani MD> Date Arben Lakhani MD Cosigner Signature (If Indicated): Date CC: Damon Jane Observed: 01/25/2018 Status: F Source: [place] STREP A (THROAT 12:30 PM [facility] RAPID LEYLA) REPOSITORY Order Date: 01/25/18 Strep A Rapid Rapid Strep A Screen NEGATIVE A Disk (Conf. Cult) Negative for Strep Group A : All NEGATIVE screens will be confirmed with a culture. Performed By: #### M100.676 #### [facility] [address] [place], [address] NECK FOR SOFT Observed: 01/25/2018 Status: F Source: [place] TISSUE 11:45 AM [facility] REPOSITORY [facility] Imaging Services [address] [place] [address] Neck for Soft Tissue MR#: [id number] Acct: [id number] Name: BETTE BRIGGS Rep #: [id number] : 1955 F 62 From: Gavin Avila MD PCP: Damon Jane Status: REG ER Study: Neck for Soft Tissue Date of Exam: 01/25/18 Exam# [id number] Ordering Dr: Arben Lakhani MD STUDY: X-RAY - SOFT TISSUE NECK REASON FOR EXAM: Female, 62 years old. Sore throat. TECHNIQUE: 3 view(s) of the neck were obtained. COMPARISON: None. FINDINGS: Normal visualized nasopharynx, oropharynx, hypopharynx. Normal epiglottis. Normal visualized subglottic tracheal air column. Normal prevertebral soft tissue structures. There are degenerative changes of the cervical spine with cervical spondylosis. The soft tissue structures are unremarkable. 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 Electronically Signed: Gavin Avila MD at 12:48 EDT Tel [phone], Service support , CC: Arben Lakhani MD; Damon Jane Service Employee: Signed URGENT CARE VISIT Observed: 11/18/2017 Status: F Source: [place] REPORT 12:40 PM [facility] REPOSITORY [facility] [address] [place] [address] [address] [place] [address] OFFICE VISIT Date of Service: 11/18/17 MR#: [id number] Acct: [id number] Name: BETTE BRIGGS Rep #: [id number] : 1955 Provider: Richar DUNCAN Age/Sex: 62/F Location[place] [facility] Status: Signed Intake Vital Signs11/18/17 Height 6 ft 11/18/17 Weight: 290 lb 11/18/17 Body Mass Index (BMI) 39.3 11/18/17 Blood Pressure 124/78 11/18/17 Blood Pressure Location Rt brachial 11/18/17 Blood Pressure Position Sitting Intake Visit Reasons: Hoarseness swollen glands sorethroat Is patient in pain?: No Allergies Sulfa (Sulfonamide Antibiotics) Allergy (Verified 11/18/17 12:14) Rash Medications Albuterol Inhaler [Ventolin Hfa] 2 puff INHALATION Q4H PRN PRN 03/12/14 [History Confirmed 11/18/17] Fluticasone 110 Mcg [Flovent 110 Mcg] 1 puff INHALATION BID PRN 03/12/14 [History Confirmed 11/18/17] Multivitamins,Therapeutic [Multivitamin] 1 tab PO DAILY 03/12/14 [History Confirmed 11/18/17] alprazolam 0.25 mg tablet 0.25 mg PO BID-TID PRN 09/25/17 [History Confirmed 11/18/17] cetirizine 10 mg tablet 10 mg PO QDAY 09/25/17 [History Confirmed 11/18/17] cholecalciferol (vitamin D3) 1,000 unit capsule 1,000 unit PO ONCE 09/25/17 [History Confirmed 11/18/17] hydrochlorothiazide 12.5 mg capsule 12.5 mg PO ONCE 09/25/17 [History Confirmed 11/18/17] naproxen sodium 220 mg tablet 220 mg PO Q12H 09/25/17 [History Confirmed 11/18/17] azithromycin 250 mg tablet 250 mg PO QDAY 5 Days #6 tab 11/18/17 [Rx Confirmed 11/18/17] PFSH Medical History Hay fever (Acute) Surgical History History of knee replacement (Acute) Social History Smoking Status: Former smoker alcohol intake: never HPI Hoarseness swollen glands sorethroat: Details: BETTE BRIGGS, is a 62 F who presents to the office today for hoarseness, sore throat and white spots in the back of her throat for the past 3 days. Patient states that she has had no fever however does feel that she has had some hot flashes. She states that she lost her voice today and has been using lozenges but no other medications. She denies nausea, vomiting, diarrhea. No chest pain, shortness of breath or difficulty breathing. No other associated symptoms or alleviating/aggravating factors. ROS Const Constitutional: No fever(s), headache(s), anorexia, chills or abnormal sleep pattern ENT ENT: Positive for post nasal drip and sore throat; no headache(s) Resp Respiratory: No shortness of breath Cardio Cardiology: No irregular heart rhythm or palpitations Gastro GI: No nausea/dyspepsia Neuro Neurology: No headache(s) or behavioral changes Psych Psychiatric: No behavioral changes, No abnormal sleep pattern Exam Const General: cooperative, healthy appearing [facility] Head: normal to inspection Ears: hearing grossly normal bilaterally, TM's normal bilaterally Nose: external nose normal, nasal discharge clear Mouth: oral mucosae normal Throat: abnormal tonsil bilaterally, posterior oropharynx abnormal erythema and exudates Resp Effort AND Inspection: normal respiratory effort Auscultation: Bilateral: Clear to Auscultation Cardio Palpation: normal PMI Rate: regular rate Rhythm: regular rhythm Neuro General: CN's II-XI intact bilaterally Psych Appearance: grossly normal Mental Status: mental status grossly normal Assessment AND Plan Problems 1. Acute pharyngitis, unspecified etiology J02.9 Status Acute Plan Encouraged to get plenty of rest, drink lots of clear liquids, and use Tylenol or Ibuprofen (unless contraindicated) for fever and comfort. Patient also educated on other symptomatic management techniques. To be seen in 7-10 days if no improvement; sooner if worsening of symptoms. Medications New: azithromycin Take 2 tabs once on day one. Take one tablet n250 mg PO QDAY 5 days J02.9 ext 4 days Coding Level of Care Code Off vis,est,level 3 Diagnoses Acute pharyngitis, unspecified etiology J02.9 Pharyngitis/tonsillitis etiology: unspecified etiology 11/18/17 1240 <Electronically signed by Richar DUNCAN> Date Richar DUNCAN Cosigner Signature: Date (if applicable) CC: ALLERGIES ALLERGIES DATE TYPE / CODE NAME / CODE REACTION SEVERITY SOURCE 09/08/2018 Drug Sulfa Rash Unknown [facility] Allergy/4160 ([facility] [address](SNOMED Antibiotics)/ Repository CT) [id number](RX NORM) Drug SULFA Moderate Jeovany Pomerene Allergy/4160 (sulfonamide) ([facility] [address](SNOMED /57479552(RXN Modifier) Repository CT) ORM) (Qualifier Value) ENCOUNTERS ENCOUNTERS ADMIT/DISCHARGE ACCOUNT ADMITTING ENCOUNTER LOCATION SOURCE NUMBER CLASS 11/01/2018 [id number] Ambulatory [place] 2 [facility] ing:HPRAD Repository 11/01/2018/ [id number] Ambulatory BMSBuilding:B [place] 9 1 [facility] Repository 10/09/2018 [id number] Ambulatory [place] 5 [facility] ing:HPRAD Repository 10/09/2018/ [id number] Ambulatory BMSBuilding:B [place] 8 3 MS.[facility] Repository 09/25/2018 [id number] Ambulatory [place] 1 [facility] ing:HPRAD Repository 09/25/2018/ [id number] Ambulatory BMSBuilding:B [place] 8 1 MS.[facility] Repository 09/08/2018/ [id number] Ambulatory BMSBuilding:B [place] 8 1 [facility] Repository 09/06/2018/ [id number] Ambulatory BMSBuilding:B [place] 8 0 MS.NOW [facility] Repository 09/06/2018 [id number] Ambulatory [place] 4 [facility] ing:MTRAD Repository 09/06/2018/ [id number] Ambulatory BMSBuilding:B [place] 8 1 MS.NOW [facility] Repository 07/24/2018/ [id number] Ambulatory BMSBuilding:B [place] 8 3 MS.[facility] Repository 07/24/2018/ [id number] Ambulatory BMSBuilding:B [place] 8 6 [facility].NOW [facility] Repository 04/06/2018/ [id number] ETHAN ROBLES Ambulatory [place] Pomgamal 8 [facility] Repository 01/25/2018/ [id number] Emergency [place] 8 1 [facility] ing:ED Repository 11/18/2017/ [id number] Ambulatory BMSBuilding:B [place] 8 0 MS.NOW [facility] Repository PAYERS PAYERS ENCOUNTER GUARANTOR PAYER SUBSCRIBER SOURCE 11/01/2018 BETTE Shell Primary Insurance:OB BETTE Meyers [id number] [facility] [address], Number: [id number] [address]Vrc: [id number] Repository Date:1224-27-87[address] [place] [address]RZBJNHLV, [place] [address]YH: 11/01/2018 Secondary NOT GIVENUNK [place] Insurance:SELF PAY [facility] Number: Effective Repository Date:2018-11-01 11/01/2018 BETTE Shell Primary Insurance:OB BETTE Taioster [id number] TR [facility] [address], Number: [id number] Hospital [place] [address]Aek: [id number] Repository Date:0115-26-28LI BOX (HP) 997847IUGPYBBR, [place] [address]FL: 11/01/2018 Secondary NOT GIVENUNK [place] Insurance:SELF PAY [facility] Number: Effective Repository Date:2018-11-01 10/09/2018 BETTE J Primary Insurance:OBWC BETTE J [place] [id number] TR CAREWORKSPolicy MILLERDOB: [address], Number: [id number] Medical Center-[facility] [address]Ebn: [id number] Repository Date:5657-72-40HW [address]OX () 404[address]IDOTCEMA, [place] [address]DK: 10/09/2018 Secondary NOT GIVENUNK [place] Insurance:SELF PAY [facility] Number: Effective Repository Date:2018-10-09 10/09/2018 BETTE J Primary Insurance:OBWC BETTE J [place] [id number] TR CAREWORKSPolicy MILLERDOB: [address], Number: [id number] Medical Center-[facility] [address]Whb: [id number] Repository Date:6656-99-18CG BOX () 147052BRLPQPVF, [place] [address]MY: 10/09/2018 Secondary NOT GIVENUNK [place] Insurance:SELF PAY [facility] Number: Effective Repository Date:2018-10-09 09/25/2018 BETTE J Primary Insurance:OBWC BETTE J [place] [id number] TR CAREWORKSPolicy MILLERDOB: [address], Number: [id number] Medical Center-[facility] [address]Kum: [id number] Repository Date:5033-30-52ZN BOX (ZU) 360625TEQZQNUA, [place] [address]NZ: 09/25/2018 Secondary BETTE J [place] Insurance:ANTHEMPolicy MILLERDOB: Community Number: [id number] Hospital [id number] Repository Date:1442-49-08[address] [address]PXLLALIFEV, [place] [address]OO: 09/25/2018 Tertiary NOT GIVENUNK [place] Insurance:SELF PAY [facility] Number: Effective Repository Date:2018-09-25 09/25/2018 BETTE J Primary Insurance:SELF NOT GIVENUNK [place] [id number] TR PAY [address], Number: Effective Hospital [place] [address]Buu: Date:2018-09-25 Repository () 09/08/2018 BETTE J Primary Insurance:OB BETTE J [place] [id number] TR CAREWORKSPolickary MILLERDOB: [address], Number: [id number] [place] [address]Odb: [id number] Repository Date:0201-93-47IY BOX () 736810ZMLVVHMX, [place] [address]DD: 09/08/2018 Secondary NOT GIVENUNK [place] Insurance:SELF PAY [facility] Number: Effective Repository Date:2018-09-08 09/06/2018 BETTE J Primary Insurance:SELF NOT GIVENUNK [place] [id number] TR PAY [address], Number: Effective Hospital [place] [address]Lmb: Date:2018-09-06 Repository () 09/06/2018 BETTE J Primary Insurance:OB BETTE Sumaya [place] [id number] TR CAREWORKSPolthelma MILLERDOB: [address], Number: [id number] [place] [address]Nmw: [id number] Repository Date:2916-82-50VA BOX (DU) 267253NTDWHKYP, [place] [address]TE: 09/06/2018 Secondary NOT GIVENUNK [place] Insurance:SELF PAY [facility] Number: Effective Repository Date:2018-09-06 09/06/2018 BETTE J Primary BETTE J [place] [id number] TR Insurance:ANTHEMPsamm MILLERDOB: [address], Number: [id number] Medical Center-R[facility] Rancho [address]Nwr: [id number] Repository Date:4154-98-39DI BOX () [address] [place] [address]FB: 09/06/2018 Secondary NOT GIVENUNK [place] Insurance:SELF PAY [facility] Number: Effective Repository Date:2018-09-06 07/24/2018 BETTE J Primary Insurance:SELF NOT GIVENUNK [place] [id number] PAY [facility] [address] Number: Effective Hospital [address] [place] [address], Date:2018-07-24 [place]ository [place] [address]Snt: () 07/24/2018 BETTE J Primary BETTE J [place] [id number] Insurance:ANTHEMPolicy MILLERDOB: [facility] Number: [id number], [id number] [place]ository [place] [address]Kfp: Date:9873-93-34BR [address] [place] [address] () [address]QN: 07/24/2018 Secondary NOT GIVENUNK [place] Insurance:SELF PAY [facility] Number: Effective Repository Date:2018-07-24 04/06/2018 BETTE Primary Insurance:BLUE BETTE BRIGGSDOB: [address]OR[address]DA BRIGGSDOB: [facility] [id number] [facility] [id number] Number: [facility] Repository [address] [place] [address] [id number] Date:Plan Name:[id number]: () 01/25/2018 BETTE J Primary BETTE J [place] [id number] Insurance:ANTHEMPolicy MILLERDOB: [facility] Number: [id number] [id number] [place]ository [place] [address]Sgg: Date:6893-59-86JR [address] [place] [address] () [address]GB: 01/25/2018 Secondary NOT GIVENUNK [place] Insurance:SELF PAY [facility] Number: Effective Repository Date:2018-01-25 11/18/2017 BETTE J Primary BETTE J [place] [id number] Insurance:Leslie PATELB: [facility] Number: [id number], [id number] [place]ository [place] [address]Jdk: Date:7425-31-28DK [address] [place] [address] () [address]HD: 11/18/2017 Secondary NOT GIVENUNK [place] Insurance:SELF PAY [facility] Number: Effective Repository Date:2017-11-18
== END ==
PROVIDERS: Family Provider Family Medicine; PCP Family Medicine; Referring Provider Physician Assistant Surgical; Visit Provider Physician Assistant Surgical
DX: S92.421A Displaced fracture of distal phalanx of right great toe, initial encounter for closed fracture (principal); X58.XXXA Exposure to other specified factors, initial encounter; Y99.0 Civilian activity done for income or pay; M19.071 Primary osteoarthritis, right ankle and foot; M77.31 Calcaneal spur, right foot
CPT/HCPCS: 73630

== ENCOUNTER → 2018-10-09 10:16 | Outpatient (CLI) | payer OTHER, SELFPAY ==
[2018-10-09 09:56] VITALS: BMI 39.3
--- NOTE | 2018-10-09 10:18 | RAD_ITS ---
STUDY: X-RAY - RIGHT FOOT CLINICAL: Female, 63 years old. History of fracture follow-up TECHNIQUE: 3 view(s) of the foot. COMPARISON: None. FINDINGS: Normal talus, calcaneus, and tarsal bones. Normal visualized subtalar, talonavicular, calcaneocuboid, tarsal and tarsometatarsal articulations. Normal metatarsi. Normal metatarsophalangeal joint of the great toe. Normal tibial and fibular sesamoid bones. Normal interphalangeal joint of the great toe. There is a subacute fracture of the distal phalanx of the first digit with a fracture line across the midline and at the lateral corner of the interphalangeal joint. Since prior study September 25, 2018 there is greater displacement. Breast seen on oblique view.. Normal second through fifth metatarsophalangeal joints. There is mild degenerative change in the interphalangeal joints of the foot. The bones overall are osteopenic. There is calcification of the plantar fascia which can be associated plantar fasciitis. This visualized mild soft tissue swelling overlying the dorsal aspect of the foot. RAD/Foot min 3 Views IMPRESSION: Persistent now Displaced fracture of the midshaft distal phalanx of the first digit greater than prior study. Possible reinjury. Calcification of plantar fascia can be associated plantar fasciitis. Degenerative change of the distal interphalangeal joints. Osteopenia. Electronically Signed: Yeimi Collins MD at 12:16 EST Tel , Service support ,
== END ==
PROVIDERS: Family Provider Family Medicine; PCP Family Medicine; Referring Provider Physician Assistant Surgical; Visit Provider Physician Assistant Surgical
DX: S92.421A Displaced fracture of distal phalanx of right great toe, initial encounter for closed fracture (principal); X58.XXXA Exposure to other specified factors, initial encounter
CPT/HCPCS: 73630

== ENCOUNTER → 2018-11-01 14:39 | Outpatient (CLI) | payer OTHER, SELFPAY ==
[2018-11-01 14:32] VITALS: BMI 39.3
--- NOTE | 2018-11-01 14:44 | RAD_ITS ---
STUDY: X-RAY RIGHT FOOT, TOE REASON FOR EXAM: Female, 63 years old. TECHNIQUE: 3 view(s) of the toe were obtained. COMPARISON: None. FINDINGS: There is a minimally distracted (2 mm) transversely oriented fracture of the proximal shaft of the distal phalanx of the right big toe with soft tissue swelling of the big toe. The proximal phalanx is normal RAD/Toe(s) Min 2 Views IMPRESSION: A distracted fracture involving the proximal margin of the distal phalanx of the right big toe Electronically Signed: Valeriy Diaz MD at 3:26 EST Tel , Service support ,
--- OUTSIDE RECORDS SUMMARY | 2019-01-06 13:44 | XMS RPT_ITS ---
:1955 Author Organization OHIP Support Name Relationship Address Phone [employer] Unavailable [address] + [address] [place] [address] DANITA DOOLEYRICIA Unavailable [address] + [place] [address] [employer] Unavailable [address] + [address] [place] [address] DANITA DOOLEYRICIA Unavailable [address] + [place] [address] [employer] Unavailable [address] + [address] [place] [address] DANITA DOOLEYRICIA Unavailable [address] + [place] [address] [employer] Unavailable [address] + [address] [place] [address] SOUMYA KELSEY Unavailable [address] + [place] [address] [employer] Unavailable [address] + [address] [place] [address] SOUMYA KELSEY Unavailable [address] + [place] [address] [employer] Unavailable [address] + [address] [place] [address] DANITA DOOLEYRICIA Unavailable [address] + [place] [address] [employer] Unavailable [address] + [address] [place] [address] DANITA DOOLEYRICIA Unavailable [address] + [place] [address] [employer] Unavailable [address] + [address] [address] KELSEY DOOLEY Unavailable . + [place] [address] [employer] Unavailable [address] + [address] [address] DANITA DOOLEYRICIA Unavailable . + [place] [address] [employer] Unavailable [address] + [address] [address] NISHI DOOLEYIA Unavailable . + [place] [address] [employer] Unavailable [address] + [address] [address] NISHI DOOLEYIA Unavailable / + [place] [facility] Unavailable [address] + [address] [address] NISHI DOOLEYIA Unavailable / + [place] NOT GIVEN Unavailable Unavailable Unavailable DANITA DOOLEY Unavailable Unavailable + [employer] Unavailable [address] + [address] [address] NISHI DOOLEYIA Unavailable / + [place] [facility] Unavailable [address] + [address] [address] NISHI DOOLEYIA Unavailable / + [place] Care Team Providers Name Role [...] Referring Unavailable Buck, Damon Primary Care Unavailable Brock Yeung Attending Unavailable Damon Jane Referring Unavailable Brock Yeung Attending Unavailable Brock Yeung Referring Unavailable Brown, Damon Primary Care Unavailable Richar Kaminski Attending Unavailable Brown, Damon Referring Unavailable Brown, Damon Primary Care Unavailable Brown, Damon Primary Care Unavailable Arben Lakhani Attending Unavailable Gordy, Richar Attending Unavailable Buck, Damon Referring Unavailable Gordy, Richar Attending Unavailable Buck, Damon Referring Unavailable Daksha, Waleska Attending Unavailable Brown, Damon Referring Unavailable Daksha, Waleska Attending Unavailable Daksha, Waleska Referring Unavailable Brown, Damon Primary Care Unavailable Nurse, Standard Attending Unavailable Buck, Damon Referring Unavailable Gordy, Richar Attending Unavailable Brown, Damon Referring Unavailable PROBLEMS PROBLEMS DATE TYPE CONDITION / CODE ATTENDING STATUS SOURCE 11/01/2018 Unknown S92.401A - Brock Yeung Active [facility]placed [facility] unspecified Hospital fracture of right Repository great toe, initial encounter for closed fracture / S92.401A(ICD-10) 10/20/2018 Unknown S92.404A - Richar Kaminski Active [facility] Nondisplaced Community unspecified Hospital fracture of right Repository great toe, initial encounter for closed fracture / S92.404A(ICD-10) 10/20/2018 Unknown S90.111A - Richar Kaminski Active [facility] Contusion of right Community great toe without Hospital damage to nail, Repository initial encounter / S90.111A(ICD-10) 10/20/2018 Unknown S90.31XA - Rcihar Kaminski Active [facility] Contusion of right Community foot, initial Hospital encounter / Repository S90.31XA(ICD-10) 09/22/2018 Unknown S90.211A - Daksha, Active [facility] Contusion of right [facility] great toe with Hospital damage to nail, Repository initial encounter / S90.211A(ICD-10) 09/22/2018 Unknown S90.121A - Daksha, Active [facility] Contusion of right [facility] lesser toe(s) Hospital without damage to Repository nail, initial encounter / S90.121A(ICD-10) 09/22/2018 Unknown S91.101A - Daksha, Active [facility] Unspecified open [place] Community wound of right [...] ORTHOPEDIC VISIT Observed: 11/03/2018 Status: F Source: [place] REPORT 8:25 AM [facility] REPOSITORY [facility] [address] [place] [address] OFFICE VISIT Date of Service: 11/01/18 MR#: [id number] Acct: [id number] Name: BETTE BRIGGS Rep #: [id number] : 1955 Provider: DAKOTA Yeung Age/Sex: 63/F Location: [facility] Status: Signed with Addenda ADDENDUM by DAKOTA [...] after discussion patient already is seeing a computer graphic designer for some other issues that she has and therefore we are going to refer her back to her computer graphic designer just for consultation to discuss this nonhealing [...] am still recommending we just see the computer graphic designer for consult for nonhealing fracture at this time. We will request at this time for consult for Dr. Ethan Robles in [place] [facility]. All the questions were answered at this time. This note was generated with Financeit dictation software. It may contain incorrect words, [...] short black toe nail that remains. ROS [facility] Reports joint pain, Reports as per HPI, [...] after discussion patient already is seeing a computer graphic designer for some other issues that she has and therefore we are going to refer her back to her computer graphic designer just for consultation to discuss this nonhealing [...] am still recommending we just see the computer graphic designer for consult for nonhealing fracture at this time. We will request at this time for consult for Dr. Ethan Robles in [place] [facility]. All the questions were answered at this time. This note was generated with TourRadaration software. It may contain incorrect words, spelling, [...] 11/01/2018 Status: F Source: LUIGI 2:44 PM [facility] REPOSITORY [facility] Imaging Services [address] [place] [address] Toe(s) Min 2 Views MR#: [id number] Acct: [id number] Name: BETTE BRIGGS Rep #: [id number] : 1955 F 63 From: Valeriy Diaz MD PCP: Damon Jane MD Status: REG CLI Study: Toe(s) Min 2 Views Date of Exam: 11/01/18 Exam# [id number] Ordering Dr: Brock Yeung STUDY: X-RAY RIGHT [...] , CC: DAKOTA Yeung; Damon Jane MD Sample Box Maker: Signed URGENT CARE VISIT Observed: 10/09/2018 Status: F Source: [place] REPORT 12:48 PM [facility] REPOSITORY [facility] [address] [place] [address] OFFICE VISIT Date of Service: 10/09/18 MR#: [id number] Acct: [id number] Name: BETTE BRIGGS Rep #: [id number] : 1955 Provider: Richar DUNCAN Age/Sex: 63/F Location: [facility].NOW Status: Signed Intake Vital Signs10/09/18 Body Mass [...] understanding and agreement with all the above. Hapticom 14 filled out releasing patient back to [...] signed by Richar DUNCAN> Date Richar DUNCAN [facility] Signature: Date (if applicable) CC: FOOT MIN 3 VIEWS Observed: 10/09/2018 Status: F Source: LUIGI 10:18 AM [facility] REPOSITORY [facility] Imaging Services [address] [place] [address] Foot min 3 Views MR#: [id number] Acct: [id number] Name: BETTE BRIGGS Rep #: [id number] : 1955 F 63 From: Yeimi Collins MD PCP: Damon Jane MD Status: REG CLI Study: Foot min 3 Views Date of Exam: 10/09/18 Exam# [id number] Ordering Dr: Richar Kaminski STUDY: X-RAY - [...] , CC: Richar DUNCAN; Damon Jane MD Sample Box Maker: Signed URGENT CARE VISIT Observed: 09/25/2018 Status: F Source: [place] REPORT 5:16 PM [facility] REPOSITORY [facility] [address] [place] [address] [address] [place] [address] OFFICE VISIT Date of Service: 09/25/18 MR#: [id number] Acct: [id number] Name: BETTE BRIGGS Rep #: [id number] : 1955 Provider: Richar DUNCAN Age/Sex: 63/F Location: [facility]NOW Status: Signed Intake Vital Signs09/25/18 Body Mass Index (BMI) 39.3 09/25/18 Blood Pressure 120/80 09/25/18 Blood Pressure Location Lt brachial Intake Visit Reasons: AKRON BRASS TOE F/U Chief Complaint: Follow up Director Of Corporate Sponsorships Required: No Allergies Sulfa (Sulfonamide Antibiotics) Allergy [...] 09/25/2018 Status: F Source: LUIGI 3:47 PM [facility] REPOSITORY [facility] Imaging Services [address] [place] [address] Foot min 3 Views MR#: [id number] Acct: [id number] Name: BETTE BRIGGS Rep #: [id number] : 1955 F 63 From: Koffi Garza MD PCP: Damon Jane MD Status: REG CLI Study: Foot min 3 Views Date of Exam: 09/25/18 Exam# [id number] Ordering Dr: Richar Kaminski STUDY: X-RAY - [...] , CC: Richar DUNCAN; Damon Jane MD Sample Box Maker: Signed URGENT CARE VISIT Observed: 09/08/2018 Status: F Source: LUIGI REPORT 1:10 PM [facility] REPOSITORY [facility] [facility] [address] [place] [address] OFFICE VISIT Date of Service: 09/08/18 MR#: [id number] Acct: [id number] Name: BETTE BRIGGS Rep #: [id number] : 1955 Provider: Richar DUNCAN Age/Sex: 63/F Location: [facility] Status: Signed Intake Vital Signs09/08/18 Body Mass Index (BMI) 39.3 09/08/18 Blood Pressure 126/84 H 09/08/18 Blood Pressure Location Lt brachial 09/08/18 Blood Pressure Position Sitting 09/08/18 Respiratory Rate 16 Intake Visit Reasons: AKRON BRASS-TOE F/U Chief Complaint: pain right foot injury Director Of Corporate Sponsorships Required: No Accompanied by: self Is patient [...] Status: F Source: LUIGI REPORT 6:[address] [address] OFFICE VISIT Date of Service: 09/06/18 MR#: [id number] Acct: [id number] Name: BETTE BRIGGS Rep #: [id number] : 1955 Provider: DAKOTA Crooks Age/Sex: 63/F Location: [facility] Status: Signed Intake Vital Signs09/06/18 Body Mass Index (BMI) 39.3 Intake Visit Reasons: RIGHT FOOT Chief Complaint: pain right foot injury Director Of Corporate Sponsorships Required: No Accompanied by: None Allergies Sulfa [...] time off injury, just a dent'and the health and safety tech wasn't there. Today she worked on it all day and noted increased pain with blood on her stocking. When she saw all the blisters and how black and blue it was, and some blood, she emailed her health and safety tech, and told her boss who sent her [...] Nutritional Appearance: overweight Orientation: alert, oriented x3 [facility] Head: normal to inspection, normocephalic Ears: hearing [...] great toe. +tender to palpate . Right foot miter operator forefoot to palpate 1-2-3 metatarsals, distally. Neuro [...] 2 VIEWS Observed: 09/06/2018 Status: F Source: [place] 4:56 PM [facility] REPOSITORY [facility] Imaging Services [address] [place] [address] Foot 2 Views MR#: [id number] Acct: [id number] Name: BETTE BRIGGS Rep #: [id number] : 1955 F 63 From: Arben Coulter MD PCP: Damon Jane md Status: REG CLI Study: Foot 2 Views Date of Exam: 09/06/18 Exam# [id number] Ordering Dr: Waleska Crooks STUDY: X-RAY - [...] , CC: DAKOTA Crooks; md Damon Jane Sample Box Maker: Signed URGENT CARE VISIT Observed: 07/25/2018 Status: F Source: LUIGI REPORT 9:01 AM [facility] [address] [place] [address] OFFICE VISIT Date of Service: 07/24/18 MR#: [id number] Acct: [id number] Name: BETTE BRIGGS Rep #: [id number] : 1955 Provider: Richar DUNCAN Age/Sex: 63/F Location: [facility] Status: Signed Intake Vital Signs07/24/18 Height 6 [...] Admin Location Lot Number Expiration Date NDC History Faculty Member 0.5 mL IM Right Deltoid [id number] 06/28/19 51021-857-56 [employer] People VIS Given Date VIS Publication Date 07/24/18 [...] RT Observed: 04/06/2018 Status: F [facility] PM [place] [id number] Patient: BETTE BRIGGS Phone#: : 1955 Age: 62 Gender: F Pt. Type: Out Account: [id number] Location: Ordering: ETHAN ROBLES Exam Date: 04/06/2018/16:22 Family Phys: PAIGE STONE Charge Code: 938787 Physician: Wilbarger Order #: [id number] DLP Dose#: PROCEDURE: X-RAY TOES RT MIN [...] EMERGENCY DEPARTMENT Observed: 01/25/2018 Status: F Source: [place] SUMMARY 5:[address] [facility] Medical Records Department [address] [place] [address] Emergency Department Summary 01/25/18 1149 MR#: [id number] Acct: [id number] Name: BETTE BRIGGS Rep #: [id number] : 1955 62 From: Arben Lakhani MD [...] viral pharyngitis This note was generated with Financeit dictation software. It may contain incorrect words, [...] your Primary Care Provider. Call [facility] ([phone]) or report to the closest Emergency Room. Call 911 if necessary. 01/25/181708 <Electronically signed by Arben Lakhani MD> Date Arben Lakhani MD Cosigner Signature (If Indicated): Date CC: Damon Jane DISCHARGE INSTRUCTION Observed: 01/25/2018 Status: F Source: LUIGI 5:09 PM [facility] REPOSITORY [facility] Medical Records Department [address] [place] [address] Discharge Instruction 01/25/18 1330 MR#: [id number] Acct: [id number] Name: BETTE BRIGGS Rep #: [id number] : 1955 62 From: Arben Lakhani MD [...] your Primary Care Provider. Call [facility] ([phone]) or report to the closest Emergency Room. Call 911 if necessary. 01/25/181708 <Electronically signed by Arben Lakhani MD> Date Arben Lakhani MD Cosigner Signature (If Indicated): Date CC: Damon Jane Observed: 01/25/2018 Status: F Source: [place] STREP A (THROAT 12:30 PM [facility] RAPID LEYLA) REPOSITORY Order Date: 01/25/18 Strep A Rapid Rapid Strep A Screen NEGATIVE A Disk (Conf. Cult) Negative for Strep Group A : All NEGATIVE screens will be confirmed with a culture. Performed By: #### M100.676 #### [facility] [address] [place], [address] NECK FOR SOFT Observed: 01/25/2018 Status: F Source: [place] TISSUE 11:45 AM [facility] REPOSITORY [facility] Imaging Services [address] [place] [address] Neck for Soft Tissue MR#: [id number] Acct: [id number] Name: BETTE BRIGGS Rep #: [id number] : 1955 F 62 From: Gavin Avila MD PCP: Damon Jane Status: REG ER Study: Neck for Soft Tissue Date of Exam: 01/25/18 Exam# [id number] Ordering Dr: Arben Lakhani MD STUDY: X-RAY [...] Gavin Avila MD at 12:48 EDT Tel [phone], Service support , CC: Arben Lakhani MD; Damon Jane Sample Box Maker: Signed URGENT CARE VISIT Observed: 11/18/2017 Status: F Source: [place] REPORT 12:40 PM [facility] REPOSITORY [facility] [address] [place] [address] [address] [place] [address] OFFICE VISIT Date of Service: 11/18/17 MR#: [id number] Acct: [id number] Name: BETTE BRIGGS Rep #: [id number] : 1955 Provider: Richar DUNCAN Age/Sex: 62/F Location: [facility] Status: Signed Intake Vital Signs11/18/17 Height 6 [...] pattern Exam Const General: cooperative, healthy appearing [facility] Head: normal to inspection Ears: hearing grossly [...] SEVERITY SOURCE 09/08/2018 Drug Sulfa Rash Unknown [facility] Allergy/4160 ([facility] [address](SNOMED Antibiotics)/ Repository CT) [id number](RX NORM) Drug SULFA Moderate Jeovany Pomerene Allergy/4160 (sulfonamide) ([facility] [address](SNOMED /33357821(RXN Modifier) Repository CT) ORM) (Qualifier Value) ENCOUNTERS ENCOUNTERS ADMIT/DISCHARGE ACCOUNT ADMITTING ENCOUNTER LOCATION SOURCE NUMBER CLASS 11/01/2018 [id number] Ambulatory [facility] 2 [facility] ing:HPRAD Repository 11/01/2018/ [id number] Ambulatory BMSBuilding:B Luigi 9 1 [facility] Repository 10/09/2018 [id number] Ambulatory [facility] Luigi 5 [facility] ing:HPRAD Repository 10/09/2018/ [id number] Ambulatory BMSBuilding:B [facility] 8 3 MS.NOW [facility] Repository 09/25/2018 [id number] Ambulatory [facility]igi 1 [facility] ing:HPRAD Repository 09/25/2018/ [id number] Ambulatory BMSBuilding:B [facility] 8 1 MS.NOW [facility] Repository 09/08/2018/ [id number] Ambulatory BMSBuilding:B Luigi 8 1 MS.NOW [facility] Repository 09/06/2018/ [id number] Ambulatory BMSBuilding:B Braman 8 0 MS.NOW [facility] Repository 09/06/2018 [id number] Ambulatory Luigi [facility] 4 [facility] ing:MTRAD Repository 09/06/2018/ [id number] Ambulatory BMSBuilding:B [facility] 8 1 MS.NOW [facility] Repository 07/24/2018/ [id number] Ambulatory BMSBuilding:B [facility] 8 3 MS.NOW [facility] Repository 07/24/2018/ [id number] Ambulatory BMSBuilding:B Luigi 8 6 MS.NOW [facility] Repository 04/06/2018/ [id number] ETHAN ROBLES Ambulatory Jeovany Pomgamal 8 [facility] Repository 01/25/2018/ [id number] Emergency [facility] Luigi 8 1 [facility] ing:ED Repository 11/18/2017/ [id number] Ambulatory BMSBuilding:B [facility] 8 0 MS.NOW [facility] Repository PAYERS PAYERS ENCOUNTER GUARANTOR PAYER SUBSCRIBER SOURCE 11/01/2018 BETTE Shell Primary Insurance:OB BETTE Meyers [id number] [facility] [address], Number: [id number] [address]Ljp: [id number] Repository Date:4758-99-35[address] [place] [address]CRNNAZW, [place] [address]SR: 11/01/2018 Secondary NOT GIVENUNK [place] Insurance:SELF PAY [facility] Number: Effective Repository Date:2018-11-01 11/01/2018 BETTE Shell Primary Insurance:OB BETTE Taioster [id number] TR [facility] [address], Number: [id number] [place] [address]Nzm: [id number] Repository Date:9205-34-27FH BOX (HP) 981633RJRNBWLX, [place] [address]ER: 11/01/2018 Secondary NOT GIVENUNK [facility] Insurance:SELF PAY [facility] Number: Effective Repository Date:2018-11-01 10/09/2018 BETTE J Primary Insurance:OBWC BETTE J [facility] [id number] TR CAREWORKSPolicy MILLERDOB: [address], Number: [id number] McKin[facility] Services [address]Bzk: [id number] Repository Date:5181-45-80XC BOX () [place]12610KCUMWHIW, [place] [address]FM: 10/09/2018 Secondary NOT GIVENUNK Luigi Insurance:SELF PAY [facility] Number: Effective Repository Date:2018-10-09 10/09/2018 BETTE J Primary Insurance:OBWC BETTE J Braman [id number] TR CAREWORKSPolicy MILLERDOB: [address], Number: [id number] [facility] Services [address]Jug: [id number] Repository Date:4243-07-15VF BOX () 711737MPIWIJPW, [place] [address]VH: 10/09/2018 Secondary NOT GIVENUNK Luigi Insurance:SELF PAY [facility] Number: Effective Repository Date:2018-10-09 09/25/2018 BETTE J Primary Insurance:OBWC BETTE J Braman [id number] TR CAREWORKSPolicy MILLERDOB: [address], Number: [id number] McKinley [facility] Care Services [address]Mvv: [id number] Repository Date:4980-43-70HP BOX (DX) 859271LWZIBLXJ, [place] [address]AY: 09/25/2018 Secondary BETTE J Luigi Insurance:ANTHEMPolicy MILLERDOB: Community Number: [id number] Hospital [id number] Repository Date:7256-97-50[address] [address]DPFDWYKGWH, [place] [address]NW: 09/25/2018 Tertiary NOT GIVENUNK Luigi Insurance:SELF PAY [facility] Number: Effective Repository Date:2018-09-25 09/25/2018 BETTE J Primary Insurance:SELF NOT GIVENUNK [facility] [id number] TR PAY INS[address], Number: Effective Hospital [place] [address]Teg: Date:2018-09-25 Repository () 09/08/2018 BETTE J Primary Insurance:OB BETTE J Luigi [id number] TR CAREWORKSPolickary MILLERDOB: [address], Number: [id number] Hospital [place] [address]Lsd: [id number] Repository Date:6174-18-63HU BOX () 610480SUPRRBVX, [place] [address]UD: 09/08/2018 Secondary NOT GIVENUNK [facility] Insurance:SELF PAY [facility] Number: Effective Repository Date:2018-09-08 09/06/2018 BETTE J Primary Insurance:SELF NOT GIVENUNK Luigi [id number] TR PAY INS[address], Number: [facility] [place] [address]Xnc: Date:2018-09-06 Repository () 09/06/2018 BETTE J Primary Insurance:OB BETTE Sumaya Luigi [id number] TR CAREWORKSPolthelma MILLERDOB: [address], Number: [id number] Hospital [place] [address]Clm: [id number] Repository Date:4829-47-53HD BOX (JK) 286847CUFWWECJ, [place] [address]GS: 09/06/2018 Secondary NOT GIVENUNK Braman Insurance:SELF PAY [facility] Number: Effective Repository Date:2018-09-06 09/06/2018 BETTE J Primary BETTE J Luigi [id number] TR Insurance:ANTHEMPsamm MILLERDOB: [address], Number: [id number] McKinley [facility] Care Services [address]Rus: [id number] Repository Date:4888-78-05FW BOX () [address] [place] [address]CR: 09/06/2018 Secondary NOT GIVENUNK Br[facility] Insurance:SELF PAY [facility] Number: Effective Repository Date:2018-09-06 07/24/2018 BETTE J Primary Insurance:SELF NOT GIVENUNK Luigi [id number] PAY [facility] [address] Number: Effective Hospital [address] [place] [address], Date:2018-07-24 Repository [place] [address]Lgm: () 07/24/2018 BETTE J Primary BETTE J Braman [id number] Insurance:ANTHEMPolicy MILLERDOB: [facility] Number: [id number], [id number] Repository [place] [address]Qkn: Date:7758-90-89EY [address] [place] [address] () [address]GV: 07/24/2018 Secondary NOT GIVENUNK Braman Insurance:SELF PAY [facility] Number: Effective Repository Date:2018-07-24 04/06/2018 BETTE Primary Insurance:BLUE BETTE BRIGGSDOB: [address] FLOR[address]DA BRIGGSDOB: [facility] [id number] [facility] [id number] Number: [facility] Repository [address] [place] [id number] Date:Plan Name:[id number] [id number]: () 01/25/2018 BETTE J Primary BETTE J Luigi [id number] Insurance:ANTHEMPolicy MILLERDOB: [facility] Number: [id number] [id number] Repository [place] [address]Nsw: Date:6974-41-47VI [address] [place] [address] () [address]ZT: 01/25/2018 Secondary NOT GIVENUNK Luigi Insurance:SELF PAY [facility] Number: Effective Repository Date:2018-01-25 11/18/2017 BETTE J Primary BETTE J Luigi [id number] Insurance:Leslie PATELB: [facility] Number: [id number], [id number] Repository [place] [address]Lqq: Date:7044-61-58JV [address] [place] [address] () [address]NO: 11/18/2017 Secondary NOT GIVENUNK Luigi Insurance:SELF PAY [facility] Number: Effective Repository Date:2017-11-18
== END ==
PROVIDERS: Family Provider Family Medicine; PCP Family Medicine; Referring Provider Physician Assistant; Visit Provider Physician Assistant
DX: S92.421A Displaced fracture of distal phalanx of right great toe, initial encounter for closed fracture (principal)
CPT/HCPCS: 73660

== ENCOUNTER → 2018-12-23 14:21 | Outpatient (CLI) | payer BC, SELFPAY ==
[2018-12-22 15:20] VITALS: BMI 39.3
== END ==
PROVIDERS: Family Provider Family Medicine; PCP Family Medicine; Referring Provider Physician Assistant Surgical; Visit Provider Physician Assistant Surgical
DX: J02.9 Acute pharyngitis, unspecified (principal)
CPT/HCPCS: 87081

== ENCOUNTER → 2020-08-11 05:55 | Outpatient (CLI) | payer BC, SELFPAY ==
[2020-05-26 16:23] VITALS: BMI 39.3
[2020-08-11 07:16] LABS: Hematocrit 43.5 % (37-47); Hemoglobin 13.8 g/dL (12.0-15.0); Mean Corp Hgb Conc 31.7 g/dL (32-36); Mean Corpuscular Hgb 29.6 pg (27.0-32.0); Mean Corpuscular Volume 93.3 fL (81-99); Mean Platelet Vol. 9.9 fl (6.2-12.0); Platelet Count 489 K/mm3 (150-450); RBC Distribution Width CV 12.6 % (11.6-14.6); RBC Distribution Width SD 43.1 fl (35.1-43.9); Red Blood Count 4.66 M/mm3 (4.2-5.4)
[2020-08-11 08:01] LABS: ALB/GLOB Ratio 0.7 RATIO (0.9-2.4); AST(SGOT) 21 U/L (15-37); Alanine Aminotransfer ALT/SGPT 31 U/L (13-56); Alkaline Phosphatase 67 U/L (45-117); Anion Gap 6 (5-15); BUN 26 mg/dL (7-18); BUN/Creat Ratio 29.7 RATIO (10-20); Calcium,Total 8.9 mg/dL (8.5-10.1); Chloride 105 mmol/L (98-107); Cholesterol 187 mg/dL (200); Creatinine, Serum 0.88 mg/dL (0.55-1.02); EST Glomerular Filtration Rate 69 mL/min (>60); Est Glom Filt Rate - Afr Amer 84 mL/min (>60); Globulin 4.4 g/dL (2.2-4.2); Glucose 158 mg/dL (74-106); High Density Lipoprotein 52 mg/dL; Potassium 3.9 mmol/L (3.5-5.1); Protein, Total 7.4 g/dL (6.4-8.2); Sodium Level 140 mmol/L (136-145); Triglycerides 122 mg/dL
[2020-08-11 08:02] LABS: Thyroid Stim Hormone (TSH) 5.12 uIU/mL (0.358-3.74); Very Low Density Lipoprotein 24 mg/dL (5-40)
[2020-08-11 09:41] LABS: Hemoglobin A1c 8.1 % (3.8-5.6)
[2020-08-11 17:30] LABS: BNP,B-Type NATRIURETIC PEPTIDE 77.7 pg/mL (0-100)
== END ==
PROVIDERS: PCP Family Medicine
DX: I48.91 Unspecified atrial fibrillation (principal); I42.8 Other cardiomyopathies
CPT/HCPCS: 36415; 80053; 80061; 83036; 83880; 84443; 85027

== ENCOUNTER → 2021-05-15 08:39 | Outpatient (CLI) | payer MEDICARE, BC, SELFPAY ==
[2020-05-26 16:23] VITALS: BMI 39.3
--- NOTE | 2021-05-15 08:41 | ECHOD_ITS ---
Reason For Study: CARDIOMYOPATHY Procedure This was a 2D Doppler, Color Flow transthoracic echocardiogram. The exam was of adequate technical quality. Exam performed in department. Left Ventricle Normal LV size. Left ventricular systolic function is normal. The estimated ejection fraction is 65 %. There is evidence of diastolic dysfunction. No regional wall motion abnormalities noted. Right Ventricle Normal RV size. Normal systolic function. Atria The left atrium is moderately enlarged. The right atrium is mildly enlarged. No doppler evidence for ASD. Mitral Valve There is mild mitral annular calcification. Extension the mitral annular calcification on the base of the posterior mitral valve leaflet. Mild diffuse mitral valve thickening. Mild (1+) mitral valve insufficiency. Tricuspid Valve Normal tricuspid valve. Mild tricuspid valve insufficiency. Right ventricular systolic pressure estimated to be 49 mmHg. Aortic Valve Trisinus/trileaflet aortic valve. Mild focal aortic valve calcification. Mild aortic stenosis. Pulmonic Valve The pulmonic valve is not well visualized. Great Vessels Normal sized aortic root. Pericardium/Pleural No pericardial effusion. MMode/2D Measurements & Calculations LVIDd: 5.6 cm IVSd: 0.93 cm LVOT diam: 2.0 cm LVIDs: 3.6 cm LVPWd: 0.95 cm LVOT area: 3.2 cm2 RVDd: 3.6 cm FS: 35.1 % Ao root diam: 3.3 cm LAV(MOD-bp): 109.3 ml Aortic Valve Planimetry: 1.6 cm2 LAV(MOD-bp) Indexed: 43.8 ml/m2 LAV(MOD-sp2): 83.5 ml LAV(MOD-sp4): 118.7 ml LA dimension(2D): 4.9 cm LA A4 area: 32.6 cm2 RA A4 area: 27.1 cm2 Time Measurements MV dec time: 0.24 sec Doppler Measurements & Calculations MV E max bismark: 144.6 cm/sec Lat Peak E' Bismark: 7.6 cm/sec Med Peak E' Bismark: 7.4 cm/sec MV A max bismark: 89.6 cm/sec E/E' lat: 19.2 E/E' med: 19.7 MV E/A: 1.6 Ao V2 max: 273.8 cm/sec LV V1 max: 136.9 cm/sec SV(LVOT): 102.1 ml Ao max P.0 mmHg LV V1 max P.5 mmHg Ao V2 mean: 187.7 cm/sec LV V1 mean P.3 mmHg Ao mean P.8 mmHg LV V1 mean: 99.1 cm/sec Ao V2 VTI: 61.5 cm LV V1 VTI: 32.1 cm RACHELL(I,D): 1.7 cm2 RACHELL(V,D): 1.6 cm2 PA V2 max: 149.3 cm/sec TR max bismark: 338.7 cm/sec TR max P.9 mmHg ECHO/Echo Complete Interpretation Summary Left ventricular systolic function is normal. The estimated ejection fraction is 65 %. The left atrium is moderately enlarged. The right atrium is mildly enlarged. There is mild mitral annular calcification. Extension the mitral annular calcification on the base of the posterior mitral valve leaflet. Mild diffuse mitral valve thickening. Mild (1+) mitral valve insufficiency. Mild tricuspid valve insufficiency. Mild aortic stenosis Right ventricular systolic pressure estimated to be 49 mmHg. There is evidence of diastolic dysfunction. Ordering Physician: CHUY RAMIREZ Referring Physician: PUJA CONTI Performed By: France Hoskins, PEEWEE, RVT
== END ==
PROVIDERS: PCP Family Medicine
DX: R94.31 Abnormal electrocardiogram [ECG] [EKG] (principal); I42.9 Cardiomyopathy, unspecified
CPT/HCPCS: 93306

== ENCOUNTER → 2022-01-14 08:46 | Outpatient (CLI) | payer MEDICARE, BC, SELFPAY ==
[2022-01-14 09:28] LABS: Hematocrit 42.8 % (37-47); Hemoglobin 14.4 g/dL (12.0-15.0); Mean Corp Hgb Conc 33.6 g/dL (32-36); Mean Corpuscular Hgb 29.9 pg (27.0-32.0); Mean Corpuscular Volume 88.8 fL (81-99); Mean Platelet Vol. 10.2 fl (6.2-12.0); Platelet Count 413 K/mm3 (150-450); RBC Distribution Width CV 13.2 % (11.6-14.6); RBC Distribution Width SD 42.8 fl (35.1-43.9); Red Blood Count 4.82 M/mm3 (4.2-5.4); White Blood Count 9.1 K/mm3 (4.4-11.0)
[2022-01-14 09:58] LABS: ALB/GLOB Ratio 0.8 RATIO (0.9-2.4); AST(SGOT) 28 U/L (15-37); Alanine Aminotransfer ALT/SGPT 44 U/L (13-56); Albumin, Serum 3.4 g/dL (3.2-5.0); Alkaline Phosphatase 71 U/L (45-117); Anion Gap 6 (5-15); BUN 20 mg/dL (7-18); BUN/Creat Ratio 23.4 RATIO (10-20); Calcium,Total 9.1 mg/dL (8.5-10.1); Chloride 99 mmol/L (98-107); Cholesterol 137 mg/dL (200); Creatinine, Serum 0.86 mg/dL (0.55-1.02); EST Glomerular Filtration Rate 71 mL/min (>60); Est Glom Filt Rate - Afr Amer 85 mL/min (>60); Globulin 4.1 g/dL (2.2-4.2); Glucose 238 mg/dL (74-106); High Density Lipoprotein 48 mg/dL; Potassium 3.8 mmol/L (3.5-5.1); Protein, Total 7.5 g/dL (6.4-8.2); Sodium Level 137 mmol/L (136-145); Triglycerides 164 mg/dL; Very Low Density Lipoprotein 33 mg/dL (5-40)
== END ==
PROVIDERS: PCP Family Medicine
DX: I48.0 Paroxysmal atrial fibrillation (principal); E87.5 Hyperkalemia
CPT/HCPCS: 36415; 80053; 80061; 85027

== ENCOUNTER → 2022-03-19 | Outpatient (CLI) | payer MEDICARE, BC, SELFPAY ==
[2022-03-19 10:13] LABS: Hematocrit 41.6 % (37-47); Hemoglobin 13.4 g/dL (12.0-15.0); Mean Corp Hgb Conc 32.2 g/dL (32-36); Mean Corpuscular Hgb 29.7 pg (27.0-32.0); Mean Corpuscular Volume 92.2 fL (81-99); Mean Platelet Vol. 10.2 fl (6.2-12.0); Platelet Count 406 K/mm3 (150-450); RBC Distribution Width CV 12.8 % (11.6-14.6); Red Blood Count 4.51 M/mm3 (4.2-5.4); White Blood Count 8.5 K/mm3 (4.4-11.0)
[2022-03-19 10:36] LABS: Anion Gap 6 (5-15); BUN 20 mg/dL (7-18); Calcium,Total 9.3 mg/dL (8.5-10.1); Chloride 104 mmol/L (98-107); Creatinine, Serum 0.67 mg/dL (0.55-1.02); EST Glomerular Filtration Rate 94 mL/min (>60); Est Glom Filt Rate - Afr Amer 114 mL/min (>60); Glucose 199 mg/dL (74-106); Potassium 3.9 mmol/L (3.5-5.1); Sodium Level 138 mmol/L (136-145)
== END | disposition home or self-care (01) ==
PROVIDERS: PCP Family Medicine
DX: I48.11 Longstanding persistent atrial fibrillation (principal)
CPT/HCPCS: 36415; 80048; 85027

== ENCOUNTER → 2022-04-28 | Outpatient (CLI) | payer MEDICARE, BC, SELFPAY ==
--- NOTE | 2022-04-28 08:38 | EKG12_ITS ---
Test Reason : IRREGULAR HEART RATE Blood Pressure : / mmHG Vent. Rate : 108 BPM Atrial Rate : 120 BPM P-R Int : 000 ms QRS Dur : 088 ms QT Int : 360 ms P-R-T Axes : 000 -40 039 degrees QTc Int : 482 ms Atrial fibrillation with premature ventricular or aberrantly conducted complexes Left axis deviation Low voltage QRS Abnormal ECG Confirmed by JAYLEEN HAMEED, GUANAKO ([id number]), supervising editor news reel [address]ARLA STRE[address]ER ([id number]) on 04/29/2022 9:27:53 AM Referred By: VARSHA MEDINA Confirmed By:GUANAKO CLEMENS MD
== END | disposition home or self-care (01) ==
PROVIDERS: PCP Family Medicine
DX: I48.0 Paroxysmal atrial fibrillation (principal)
CPT/HCPCS: 93005

== ENCOUNTER → 2022-05-07 | Outpatient (CLI) | payer MEDICARE, BC, SELFPAY ==
[2022-05-07 11:50] LABS: Anion Gap 6 (5-15); BUN 17 mg/dL (7-18); BUN/Creat Ratio 21.5 RATIO (10-20); Calcium,Total 9.3 mg/dL (8.5-10.1); Chloride 101 mmol/L (98-107); Creatinine, Serum 0.79 mg/dL (0.55-1.02); EST Glomerular Filtration Rate 77 mL/min (>60); Est Glom Filt Rate - Afr Amer 94 mL/min (>60); Glucose 193 mg/dL (74-106); Potassium 3.9 mmol/L (3.5-5.1); Sodium Level 139 mmol/L (136-145)
== END | disposition home or self-care (01) ==
LOC: LAB 10:59
PROVIDERS: PCP Family Medicine
DX: I48.0 Paroxysmal atrial fibrillation (principal)
CPT/HCPCS: 36415; 80048